=== PATIENT | female | born 1955 | race Caucasian/White ===

== ENCOUNTER → 2021-12-22 10:21 | Outpatient (CLI) | payer MEDICARE, SELFPAY | PROVIDERS: PCP Nurse Practitioner Family; Visit Provider Ophthalmology | DX: Z01.812 Encounter for preprocedural laboratory examination (principal); Z11.52 Encounter for screening for COVID-19 | CPT/HCPCS: C9803; U0003; U0005 ==

== ENCOUNTER 2021-12-25 07:09 | Day surgery (SDC) | payer MEDICARE, SELFPAY ==
[2021-12-19 13:59] VITALS: BMI 31.1
[2021-12-25 07:48] VITALS: BP 152/82; PULSE 84; RESP 16; TEMP 36.7; O2SAT 96
[2021-12-25 09:00] VITALS: RESP 18
[2021-12-25 09:30] VITALS: BP 152/72; PULSE 77; RESP 18; TEMP 36.3; O2SAT 95
[2022-05-30 10:59] LABS: POC Glucose,Bedside 118 (70-110)
== END 2021-12-25 09:30 | disposition home or self-care (01) ==
LOC: OR 07:11
PROVIDERS: PCP Nurse Practitioner Family; Visit Provider Ophthalmology
DX: H25.813 Combined forms of age-related cataract, bilateral (principal); H02.831 Dermatochalasis of right upper eyelid; H02.834 Dermatochalasis of left upper eyelid; F41.9 Anxiety disorder, unspecified; F32.A Depression, unspecified; E11.9 Type 2 diabetes mellitus without complications; I10 Essential (primary) hypertension; E78.5 Hyperlipidemia, unspecified; Z79.84 Long term (current) use of oral hypoglycemic drugs; Z79.899 Other long term (current) drug therapy
CPT/HCPCS: 66984; 82962; V2632

== ENCOUNTER → 2022-01-05 11:33 | Outpatient (CLI) | payer MEDICARE, SELFPAY | PROVIDERS: Visit Provider Ophthalmology | DX: Z01.812 Encounter for preprocedural laboratory examination (principal); Z11.52 Encounter for screening for COVID-19 | CPT/HCPCS: C9803; U0003; U0005 ==

== ENCOUNTER 2022-01-08 07:07 | Day surgery (SDC) | payer MEDICARE, SELFPAY ==
[2022-01-08] VITALS (8 sets, daily range): BP systolic 125–152; BP diastolic 63–83; PULSE 66–76; RESP 18; TEMP 36.2–37.1; O2SAT 95–100; BMI 31.2
[2022-01-08 07:55] LABS: POC Glucose,Bedside 116 (70-110)
== END 2022-01-08 09:32 | disposition home or self-care (01) ==
LOC: OR 07:08
PROVIDERS: PCP Nurse Practitioner Family; Visit Provider Ophthalmology
DX: H25.813 Combined forms of age-related cataract, bilateral (principal); H02.831 Dermatochalasis of right upper eyelid; H02.834 Dermatochalasis of left upper eyelid; F41.9 Anxiety disorder, unspecified; F32.A Depression, unspecified; E11.9 Type 2 diabetes mellitus without complications; I10 Essential (primary) hypertension; E78.5 Hyperlipidemia, unspecified; H91.90 Unspecified hearing loss, unspecified ear; Z85.828 Personal history of other malignant neoplasm of skin; Z80.9 Family history of malignant neoplasm, unspecified; Z83.3 Family history of diabetes mellitus; Z82.49 Family history of ischemic heart disease and other diseases of the circulatory system
CPT/HCPCS: 66984; 82962; V2632

== ENCOUNTER 2022-03-23 11:51 | Emergency (ER) | payer MEDICARE, SELFPAY ==
[2022-03-23 12:40] VITALS: BP 136/79; PULSE 89; RESP 17; TEMP 36.9; O2SAT 97; BMI 31.2
--- NOTE | 2022-03-23 13:07 | HMH.EDUTC ---
[facility] [place] Clinical Impression: Exposure to COVID-19 virus, Upper respiratory infection, viral Disposition: Home, Self-Care Condition on Discharge: Good Instructions: COVID-19: Protecting Yourself When You're at High Risk, DI for COVID-19 (Suspected or Confirmed ) Additional Instructions: covid swab was sent to lab, call tomorrow for results. self isolate until test results are known to be negative No sign of a bacterial infection. Likely viral. Viruses can take 7-14 days to run their course. Nasal saline and bulb syringe or nose Erin to remove nasal drainage to help with nasal congestion. Hard to eat, drink, sleep with nasal congestion so important to keep this cleaned out. Monitor temp. Tylenol or Motrin as needed for pain or fever Encourage fluids, water, Gatorade, Powerade, Pedialyte if /toddler/child Warm salt water gargles Warm fluids Sore throat lozenges Sleep elevated Humidifier/vaporizer Follow-up immediately for new or worsening symptoms or no noticeable improvement over the next 48-72 hours. Referrals: Provider,Referral, [Primary Care Provider] - Time of Disposition: 13:19 Medical Decision Making - Ellis Inquiry Pt receiving controlled substance: No Vital Signs: 03/23/22 12:40 Temperature 98.5 F Temperature Source Oral Pulse Rate [Right Brachial] 89 Respiratory Rate 17 Blood Pressure [Right Arm] 136/79 Blood Pressure Mean [Right Arm] 98 Blood Pressure Source [Right Arm] Automatic Cuff Blood Pressure Position [Right Arm] Sitting 02 Sat by Pulse Oximetry 97 Oxygen Delivery Method Room Air Orders (Tests/Meds): ORDERS Category Date Time Status Covid-19 Nasal PCR ([facility]) Routine Lab 03/23/22 12:40 [place] [facility] [place] - General Chief complaint: Urgent Treatment Center Stated complaint: SORE THROAT, RUNNY NOSE Time Seen by Provider: 03/23/22 13:07 Mode of Arrival: Ambulatory Source of Information: Patient Limitations: No Limitations Description of Symptoms (Recalled from Triage Doc. by RN): PATIENT C/O RUNNY NOSE, COUGH, BODY ACHES X 4 DAYS. RECENTLY EXPOSED TO COVID HEENT Symptoms (Recalled from RN notes): Yes Resp Symptoms (Recalled from RN notes): Yes Skin Symptoms (Recalled from RN notes): No MS Symptoms (Recalled from RN notes): No Functional Status (Recalled from RN notes): WNL - History of Present Illness Provider Complaint: 67 yr old female presents for covid test. pt states has been exposed and having runny nose, and cough - Related Data Home Medications Medication Instructions Recorded Confirmed Atorvastatin Calcium [Lipitor 20mg 20 mg PO HS 12/25/21 01/03/22 Tab] Buspirone HCl [Buspar 10mg 10 mg PO TID 12/25/21 01/03/22 tablet] Fluoxetine HCl [Prozac] 40 mg PO DAILY 12/25/21 01/03/22 Metformin HCl [Glucophage 500mg 500 mg PO BID 12/25/21 01/03/22 Tablet] Ubidecarenone [Coq-10] 100 mg PO DAILY 12/25/21 01/03/22 lisinopriL [Lisinopril] 10 mg PO DAILY 12/25/21 01/03/22 Allergies Allergy/AdvReac Type Severity Reaction Status Date / Time No Known Allergies Allergy Verified 01/03/22 14:16 - Worker's Comp Is this a Worker's Comp case?: No [facility] History - Hepatitis A Screen Attestation statement:: This patient has been screened for Hepatitis A risk factors. I have reviewed the patient's past medical history: Yes Medical History: Reports:: Cancer (skin), Diabetes Mellitus Type 2 Denies:: Diabetes Mellitus Type 1, Internal Pacemaker, MRSA, Seizures Laterality Cases: Right: Breast Biopsy Other Surgeries: No: Pacemaker Amputation: No Fractures: Yes (left wrist fx) - 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 Smoking Status: Never smoker Alcohol Intake: never Occupational Status: retired Housing: house Household Members: spouse Family Hx:: Cancer, Diabetes, Heart Attack ROS Obtained: Yes Systems reviewed as appropriate & no additional complaints - Constitutional Constitutional: Reports system reviewed and no additional complaints, except as docu
[2022-03-23 13:18] VITALS: BP 136/79; PULSE 89; RESP 17; TEMP 36.9; O2SAT 97
== END 2022-03-23 13:29 | disposition home or self-care (01) ==
PROVIDERS: Emergency Provider Nurse Practitioner Family
DX: J06.9 Acute upper respiratory infection, unspecified (principal); Z20.822 Contact with and (suspected) exposure to COVID-19; R07.0 Pain in throat; R09.81 Nasal congestion; R05.9 Cough, unspecified; M79.10 Myalgia, unspecified site; R09.82 Postnasal drip; E11.9 Type 2 diabetes mellitus without complications; Z79.84 Long term (current) use of oral hypoglycemic drugs; Z85.828 Personal history of other malignant neoplasm of skin
CPT/HCPCS: 99212; C9803; G0463; U0003; U0005

== ENCOUNTER 2022-08-13 18:57 | Emergency (ER) | payer MEDICARE, SELFPAY ==
--- NOTE | 2022-08-13 20:13 | EXP.UTC ---
Discharge Plan Disposition Patient Disposition: Home, Self-Care Condition: Good Prescriptions Prescriptions: New azithromycin [azithromycin] 250 mg tablet 250 mg PO DIRECTED Qty: 4 0RF Rx Instructions: one (1) tablet day #2 thru #5 first dose given in [facility] No Action fluoxetine 40 MG capsule 40 mg PO DAILY metformin 500 MG tablet 500 mg PO BID atorvastatin 20 MG tablet 20 mg PO HS buspirone 10 MG tablet 10 mg PO TID lisinopril 10 MG tablet 10 mg PO DAILY coenzyme Q10 100 MG capsule 100 mg PO DAILY Referrals Follow up/Referrals: Latisha Epps [Primary Care Provider] - See instructions Activity Restrictions/Add. Instructions Additional Instructions/Restrictions: Start antibiotics today be sure to take it as ordered with the full length of time although you should start feeling better in 24-48 hours. Change toothbrush and toothpaste 24-48 hours after starting antibiotics Tylenol or Motrin as needed for fever or pain Encourage fluids, water, Gatorade, Powerade, try cold fluids, popsicles, ice cream will make it feel better You are contagious for 24 hours. Avoid kissing anyone, no eating or drinking after anyone. You are contagious. Follow-up the ER for new or worsening symptoms or no noticeable improvement over the next 24-48 hours. Follow-up with PCP this week. Discharge ED Provider: Oumar ([facility]ace [facility] [place] HPI General Stated complaint: bump on back Mode of Arrival: Ambulatory Source of Information: Patient Limitations: No Limitations Time Seen by Provider: 08/13/22 20:13 HEENT Symptoms (Recalled from RN notes): Yes Resp Symptoms (Recalled from RN notes): No Skin Symptoms (Recalled from RN notes): No GI/ Symptoms (Recalled from RN notes): No MS Symptoms (Recalled from RN notes): No History of Present Illness Provider Complaint: 67 yr old female presents for sore throat,body aches,chills, and fever. son has strep Related Data Home Medications Medication Instructions Recorded Confirmed atorvastatin 20 mg tablet 20 mg PO HS Cholesterol 12/25/21 01/03/22 buspirone 10 mg tablet 10 mg PO TID . 12/25/21 01/03/22 coenzyme Q10 100 mg capsule 100 mg PO DAILY Cholesterol 12/25/21 01/03/22 fluoxetine 40 mg capsule 40 mg PO DAILY mood 12/25/21 01/03/22 lisinopril 10 mg tablet 10 mg PO DAILY bp 12/25/21 01/03/22 metformin 500 mg tablet 500 mg PO BID Diabetes 12/25/21 01/03/22 Previous Rx's Medication Instructions Recorded azithromycin 250 mg tablet 250 mg PO DIRECTED #4 tabs 08/13/22 Allergies Allergy/AdvReac Type Severity Reaction Status Date / Time No Known Allergies Allergy Verified 01/03/22 14:16 [facility] Disclaimer: The information contained in this section may have been updated after the patient was seen, as this information can be updated by other users. 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 smoker second hand exposure: No alcohol intake: never current occupational status: retired Travel in the last 8 weeks: None household members: spouse housing: house caffeine: Yes ROS Obtained: Yes All systems reviewed & no additional complaints except as documented Constitutional Constitutional: Reports system reviewed and no additional complaints, except as documented, Reports as per HPI, Reports body ache and Reports chills Eyes Eyes: Reports system reviewed and no additional complaints, except as documented and Reports as per HPI ENT Ears, Nose, Mouth, and Throat: Reports system reviewed and no additional complaints, except as documented, Reports as per HPI, Reports nasal congestion and Reports sore throat Cardiovascular Cardiovascular: Reports system reviewed and no additional complaints, except as documented Respiratory Respiratory: Reports system reviewed and no additional complaints, except as documented Gastrointestinal Gastrointestingal: Reports system re
--- NOTE | 2022-08-13 20:28 | EXP.UTC ---
Discharge Plan Disposition Patient Disposition: Home, Self-Care Condition: Good Prescriptions Prescriptions: New minocycline 100 mg tablet 100 mg PO BID 10 Days Qty: 20 0RF No Action fluoxetine 40 MG capsule 40 mg PO DAILY metformin 500 MG tablet 500 mg PO BID atorvastatin 20 MG tablet 20 mg PO HS buspirone 10 MG tablet 10 mg PO TID lisinopril 10 MG tablet 10 mg PO DAILY coenzyme Q10 100 MG capsule 100 mg PO DAILY Referrals Follow up/Referrals: Latisha Epps [Primary Care Provider] - See instructions Activity Restrictions/Add. Instructions Additional Instructions/Restrictions: Start antibiotics today be sure to take it as ordered with the full length of time although you should start feeling better in 24-48 hours. Follow-up the ER for new or worsening symptoms or no noticeable improvement over the next 24-48 hours. Follow-up with PCP this week. Clinical Impressions Clinical Impression: Abscess Instructions Patient Instructions: Boil Discharge ED Provider: Oumar ([facility])Kandace [facility] [place] HPI General Stated complaint: bump on back Mode of Arrival: Ambulatory Source of Information: Patient Limitations: No Limitations Time Seen by Provider: 08/13/22 20:13 HEENT Symptoms (Recalled from RN notes): No Resp Symptoms (Recalled from RN notes): No Skin Symptoms (Recalled from RN notes): Yes GI/ Symptoms (Recalled from RN notes): No MS Symptoms (Recalled from RN notes): No Card Symptoms (Recalled from RN notes): No Other (Recalled from RN notes): No History of Present Illness Provider Complaint: 67 yr old female presents for a inflamed cyst to back. pt states it has been there for years and it started having some drainage and her tried to squeeze something out of it but was unable to Related Data Home Medications Medication Instructions Recorded Confirmed atorvastatin 20 mg tablet 20 mg PO HS Cholesterol 12/25/21 01/03/22 buspirone 10 mg tablet 10 mg PO TID . 12/25/21 01/03/22 coenzyme Q10 100 mg capsule 100 mg PO DAILY Cholesterol 12/25/21 01/03/22 fluoxetine 40 mg capsule 40 mg PO DAILY mood 12/25/21 01/03/22 lisinopril 10 mg tablet 10 mg PO DAILY bp 12/25/21 01/03/22 metformin 500 mg tablet 500 mg PO BID Diabetes 12/25/21 01/03/22 Previous Rx's Medication Instructions Recorded minocycline 100 mg tablet 100 mg PO BID 10 days #20 tabs 08/13/22 Allergies Allergy/AdvReac Type Severity Reaction Status Date / Time No Known Allergies Allergy Verified 01/03/22 14:16 [facility] Disclaimer: The information contained in this section may have been updated after the patient was seen, as this information can be updated by other users. 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) Smoking Status: Never smoker second hand exposure: No alcohol intake: never current occupational status: retired Travel in the last 8 weeks: None household members: spouse housing: house caffeine: Yes ROS Obtained: Yes All systems reviewed & no additional complaints except as documented Constitutional Constitutional: Reports system reviewed and no additional complaints, except as documented and Reports as per HPI Eyes Eyes: Reports system reviewed and no additional complaints, except as documented ENT Ears, Nose, Mouth, and Throat: Reports system reviewed and no additional complaints, except as documented and Reports as per HPI Cardiovascular Cardiovascular: Reports system reviewed and no additional complaints, except as documented Respiratory Respiratory: Reports system reviewed and no additional complaints, except as documented Gastrointestinal Gastrointestingal: Reports system reviewed and no additional complaints, except as documented Musculoskeletal Musculoskeletal: Reports system reviewed and no additional complaints, except as documented and Reports as per HPI Integumentary/Breasts Skin/Breast: Reports system revie
[2022-08-13 20:36] VITALS: BP 157/70; PULSE 118; RESP 20; TEMP 37; O2SAT 95; BMI 30.9
[2022-08-13 20:43] VITALS: BP 157/70; PULSE 118; RESP 20; TEMP 37
== END 2022-08-13 20:45 | disposition home or self-care (01) ==
PROVIDERS: Emergency Provider Nurse Practitioner Family; PCP Nurse Practitioner Family
DX: L02.212 Cutaneous abscess of back [any part, except buttock and flank] (principal)
CPT/HCPCS: 99212; G0463

== ENCOUNTER 2023-03-04 17:43 | Emergency (ER) | payer MEDICARE, SELFPAY ==
[2023-03-04 17:45] VITALS: BP 150/77; PULSE 100; RESP 18; TEMP 37.1; O2SAT 95; BMI 30.6
--- NOTE | 2023-03-04 18:04 | HMH.EDGENADL ---
Discharge Plan Disposition Patient Disposition: Home, Self-Care Condition: Fair Prescriptions Prescriptions: New ciprofloxacin HCl [Cipro] 500 mg tablet 500 mg PO BID Qty: 20 0RF metronidazole 500 mg tablet 500 mg PO BID 10 Days Qty: 20 0RF No Action fluoxetine 40 MG capsule 40 mg PO DAILY metformin 500 MG tablet 500 mg PO BID atorvastatin 20 MG tablet 20 mg PO HS buspirone 10 MG tablet 10 mg PO TID lisinopril 10 MG tablet 10 mg PO DAILY coenzyme Q10 100 MG capsule 100 mg PO DAILY minocycline 100 mg tablet 100 mg PO BID 10 Days Qty: 20 0RF Referrals Follow up/Referrals: Latisha Epps [Primary Care Provider] - See instructions Clinical Impressions Clinical Impression: Diverticulitis, Mass of right kidney, Lung mass Instructions Patient Instructions: DI for Diverticulitis Discharge ED Provider: Herbie Bell [facility] HPI General Chief complaint: Abdominal Pain Stated complaint: ABD pain Time Seen by Provider: 03/04/23 17:45 History of Present Illness HPI narrative: This is a 68-year-old female who presents emergency room with 3 days of lower abdominal pain accompanied by nausea. Patient describes the pain as crampy intermittent nonradiating. Nonprovoked. Was accompanied by nausea and lightheadedness no vomiting or diarrhea last bowel movement was earlier today. Patient denies any fevers chills or dysuria. Related Data Home Medications Medication Instructions Recorded Confirmed atorvastatin 20 mg tablet 20 mg PO HS Cholesterol 12/25/21 01/03/22 buspirone 10 mg tablet 10 mg PO TID . 12/25/21 01/03/22 coenzyme Q10 100 mg capsule 100 mg PO DAILY Cholesterol 12/25/21 01/03/22 fluoxetine 40 mg capsule 40 mg PO DAILY mood 12/25/21 01/03/22 lisinopril 10 mg tablet 10 mg PO DAILY bp 12/25/21 01/03/22 metformin 500 mg tablet 500 mg PO BID Diabetes 12/25/21 01/03/22 Previous Rx's Medication Instructions Recorded minocycline 100 mg tablet 100 mg PO BID 10 days #20 tabs 08/13/22 ciprofloxacin HCl 500 mg tablet 500 mg PO BID #20 tabs 03/04/23 (Cipro) metronidazole 500 mg tablet 500 mg PO BID 10 days #20 tabs 03/04/23 Allergies Allergy/AdvReac Type Severity Reaction Status Date / Time No Known Allergies Allergy Verified 08/13/22 20:37 [facility] Disclaimer: The information contained in this section may have been updated after the patient was seen, as this information can be updated by other users. 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 smoker second hand exposure: No alcohol intake: never current occupational status: retired Travel in the last 8 weeks: None household members: spouse housing: house caffeine: Yes ROS Obtained: Yes All systems reviewed & no additional complaints except as documented Skin no rash or lesions HEENT no runny nose sore throat Pulmonary no cough or shortness of breath Cardiovascular no chest pain pressure heaviness GI see HPI no dysuria pyuria hematuria Musculoskeletal no neck or back pain Endocrine no polydipsia polyuria or polyphasia Psych no SI or HI The rest of the systems were reviewed and found to be negative Physical Exam Narrative Physical exam: Skin: Warm and dry HEENT: Normocephalic atraumatic extract muscles are intact pupils are equal and reactive to light Neck: Supple nontender Lungs: Clear to auscultation Heart: Regular rate and rhythm Abdomen: NABS soft with right lower quadrant tenderness no guarding or rebound no CVA tenderness Extremities: No clubbing cyanosis or edema Neurologic: No unilateral weakness or numbness Lymphatic: No cervical or inguinal adenopathy Musculoskeletal: No tenderness of the dorsal or lumbar spine Psych: No SI or HI General General appearance: alert Respiratory Respiratory exam: Present normal lung sounds bilaterally Cardiovascular Cardiovascular exam: Present regular
[2023-03-04 18:14] LABS: Basophils % 0.2 % (0.1-2.0); Eosinophils # 0.1 K/mm3 (0.0-0.4); Eosinophils % 1.3 % (0.1-12.0); Hematocrit 39.2 % (37.0-47.0); Hemoglobin 12.4 g/dL (12.2-16.2); Lymphocytes # 1.5 K/mm3 (0.7-4.5); Lymphocytes % 16.6 % (10-50); Mean Corpuscular HGB Conc 31.6 g/dL (31.8-35.4); Mean Corpuscular Hemoglobin 27.2 pg (27.0-31.2); Mean Corpuscular Volume 86.3 fl (81-99); Mean Platelet Volume 7.2 fl (7.4-10.4); Monocytes # 0.9 K/mm3 (0.1-1.0); Monocytes % 9.5 % (1.7-9.3); Neutrophils # 6.6 K/mm3 (1.8-7.8); Neutrophils % 72.4 % (37.0-80.0); Platelet Count 472 K/mm3 (142-424); Red Blood Count 4.54 M/mm3 (4.20-5.40); Red Cell Distribution Width 13.9 % (11.5-17.5); White Blood Count 9.1 K/mm3 (4.8-10.8)
[2023-03-04 18:17] LABS: Chloride 103 mmol/L (98-107); Potassium 3.8 mmoL/L (3.5-5.1); Sodium 139 mmol/L (136-145)
[2023-03-04 18:19] LABS: Blood Urea Nitrogen 7 mg/dl (7-17); Creatinine Clearance Estimated 71 mL/min (50-200); Estimated Glomerular Filt Rate 83 ml/min (>60); GFR (African American) 101 ML/MIN (>60)
[2023-03-04 18:20] LABS: Alanine Aminotransferase 22 U/L (12-78); Albumin/Globulin Ratio 1.3 (1.1-1.8); Alkaline Phosphatase 84 U/L (38-126); Anion Gap 11.8 mEq/L (5-15); Aspartate Amino Transferase 29 U/L (14-36); Bilirubin,Total 0.4 mg/dl (0.2-1.3); Calcium 9.5 mg/dl (8.4-10.2); Carbon Dioxide 28 mmol/L (22.0-30.0); Globulin 3.1 g/dL (1.3-3.2); Glucose 126 mg/dl (74-100); Lipase 90 U/L (23-300); Total Protein,Serum 7.1 g/dl (6.3-8.2)
[2023-03-04 18:30] VITALS: BP 123/65; PULSE 78; O2SAT 93
--- NOTE | 2023-03-04 18:31 | CT_ITS ---
PROCEDURE INFORMATION: Exam: CT Abdomen And Pelvis With Contrast Exam date and time: 03/04/2023 6:46 PM Age: 68 years old Clinical indication: Abdominal pain; Localized; Right lower quadrant (rlq); Additional info: Rlq pain TECHNIQUE: Imaging protocol: Computed tomography of the abdomen and pelvis with contrast. Radiation optimization: All CT scans at this facility use at least one of these dose optimization techniques: automated exposure control; mA and/or kV adjustment per patient size (includes targeted exams where dose is matched to clinical indication); or iterative reconstruction. Contrast material: ISOVUE; Contrast volume: 75 ml; Contrast route: IV; REPORTING DATA: Count of CT and Cardiac NM exams in prior 12 months: This patient has received 0 known CTs and 0 known cardiac nuclear medicine studies in the 12 months prior to the current study. COMPARISON: No relevant prior studies available. FINDINGS: Lungs: There is a lobular heterogeneous mass in the inferomedial right lower lobe measuring approximately 2.6 by 2.5 by 3.6 cm. It appears heterogeneously isodense and also contains small rounded focus of low attenuation measuring approximately 9 mm anteriorly which suggests cystic degeneration. This abuts the inferior medial pleura. Findings are worrisome for malignancy and recommend additional evaluation. Pleural spaces: There are no pleural effusions. Heart: The visualized portions of the heart are unremarkable. There is no evidence of pericardial fluid collections. Liver: There is diffuse decrease in hepatic/liver parenchymal density consistent with fatty infiltration. There is a tiny nonspecific subcentimeter focal liver hypodensity that cannot be further characterized on the current examination. Gallbladder and bile ducts: A few calcified gallstones are present. Pancreas: There is diffuse atrophy of the pancreatic parenchyma. Spleen: The spleen is normal. Adrenal glands: There is a 16 x 12 mm nodule in the left adrenal gland. The density of this lesion does not allow definitive diagnosis of a benign adrenal adenoma on this enhanced examination. Internal Hounsfield units measure 50. The right adrenal gland is normal. Kidneys and ureters: There is a complex right renal cystic mass measuring 3.9 x 4.3 by 4.7 cm. The appearance is worrisome for renal cell carcinoma. Recommend additional evaluation. There are several additional bilateral small renal hypodensities, some of which are too small to accurately characterize. Statistically, these may be cysts. There is a mildly complex cystic process in the superior left kidney measuring approximately 14 mm. This shows a peripheral focus of calcification and may reflect a Bosniak type 2 complex cyst. This could be further evaluated at the time of right renal mass workup. Stomach and bowel: Lack of gastrointestinal contrast limits evaluation of bowel. There is a segment of colonic wall thickening, pericolonic fat stranding and diverticula involving the mid sigmoid colon consistent with acute diverticulitis. No focal fluid collections to indicate abscess. Lack of gastrointestinal contrast limits evaluation of bowel. Unopacified loops of small bowel are within range of normal. The stomach and duodenum appear normal. Appendix: No evidence of appendicitis. A normal appendix is identified. Intraperitoneal space: There is a small amount of free fluid present. No free air. Vasculature: The aorta and iliac arteries demonstrate mild atherosclerotic calcification. There are a few benign phleboliths in the pelvis. Lymph nodes: . No enlarged lymph nodes. Urinary bladder: The bladder is decompressed. Reproductive: The uterus appears small consistent with atrophy or postsurgical change.No adne
[2023-03-04 19:00] VITALS: BP 138/64; PULSE 85; O2SAT 95
[2023-03-04 19:14] LABS: Microscopic, Urine URINE MICROSCOPIC (MICROSCOPIC)
[2023-03-04 19:18] LABS: Appearance,Urine CLEAR (Clear); Bilirubin,Urine Negative (Negative); Blood, Urine 2+ (Negative); Color,Urine YELLOW (Yellow); Glucose,Urine (UA) Negative (Negative); Ketones,Urine Negative (Negative); Leukocyte Esterase,Urine 1+ (Negative); Nitrate,Urine Negative (Negative); PH,Urine 6.5 (5.0-8.5); Protein,Urine Negative (Negative); Specific Gravity, Urine 1.015 (1.005-1.030)
[2023-03-04 19:42] LABS: Bacteria,Urine 1+ /lpf
--- NOTE | 2023-03-04 19:43 | PC.NURSE ---
Pt ambulatory to bathroom
[2023-03-04 20:15] VITALS: BP 138/64; PULSE 86; RESP 18; TEMP 37.1
== END 2023-03-04 20:40 | disposition home or self-care (01) ==
PROVIDERS: Emergency Provider Emergency Medicine; PCP Nurse Practitioner Family
DX: K57.30 Diverticulosis of large intestine without perforation or abscess without bleeding (principal); R10.30 Lower abdominal pain, unspecified; N28.89 Other specified disorders of kidney and ureter
CPT/HCPCS: 74177; 80053; 81001; 83690; 85025; 87086; 87088; 87186; 96361; 96365; 96375; 99285; J1956; J2405; Q9967

== ENCOUNTER 2023-10-23 08:52 | Emergency (ER) | payer MEDICARE, SELFPAY ==
[2023-10-23] VITALS (9 sets, daily range): BP systolic 124–150; BP diastolic 63–89; PULSE 74–102; RESP 16–18; TEMP 36.6; O2SAT 94–98; BMI 30.7
--- NOTE | 2023-10-23 09:14 | CT_ITS ---
FINAL REPORT TECHNIQUE: Axial images through the abdomen and pelvis were performed without contrast. This study was performed with techniques to keep radiation doses as low as reasonably achievable, (ALARA). Individualized dose reduction techniques using automated exposure control or adjustment of mA and/or kV according to the patient's size were employed. CLINICAL HISTORY: L flank pain COMPARISON: 03/04/2023 FINDINGS: Abdomen: There is a moderate right pleural effusion. Postoperative changes are seen in the right infrahilar region. Previously noted right lower lobe lung mass is not seen on today's exam. There are gallstones in the gallbladder. The liver parenchyma is homogeneous. The spleen, pancreas, and adrenals are unremarkable. There is a nonobstructing stone in the superior pole of the left kidney measuring 7 mm. There are postoperative changes along the posterior margin of the right kidney. There is stranding in the retroperitoneal fat. Previously noted complex mass arising from the posterior margin of the right kidney is no longer seen and was presumably resected. Pelvis: The urinary bladder is decompressed. The uterus is present. The appendix is not visualized. There is scattered diverticula throughout the sigmoid colon. There is no pelvic mass or inflammation. IMPRESSION: Moderate right pleural effusion with interval right lower lobectomy. Postoperative changes in the right kidney. Gallstones in the gallbladder. Nonobstructing left renal stone. Reviewed, Interpreted and Dictated by Jake Snell MD Transcribed by Jackie Greer Authenticated and [facility]
--- NOTE | 2023-10-23 09:16 | HMH.EDGENADL ---
Discharge Plan Disposition Patient Disposition: Home, Self-Care Condition: Good Prescriptions Prescriptions: New ketorolac 10 mg tablet 10 mg PO Q8H PRN (Reason: pain) Qty: 20 0RF ondansetron HCl 4 mg tablet 4 mg PO Q8H PRN (Reason: nausea and vomiting) 4 Days Qty: 12 0RF No Action ciprofloxacin HCl [Cipro] 500 mg tablet 500 mg PO BID Qty: 20 0RF metronidazole 500 mg tablet 500 mg PO BID 10 Days Qty: 20 0RF fluoxetine 40 MG capsule 40 mg PO DAILY metformin 500 MG tablet 500 mg PO BID atorvastatin 20 MG tablet 20 mg PO HS buspirone 10 MG tablet 10 mg PO TID lisinopril 10 MG tablet 10 mg PO DAILY coenzyme Q10 100 MG capsule 100 mg PO DAILY minocycline 100 mg tablet 100 mg PO BID 10 Days Qty: 20 0RF Referrals Follow up/Referrals: Latisha Epps [Primary Care Provider] - See instructions Terry Higuera MD [Staff Physician] - See instructions Activity Restrictions/Add. Instructions Additional Instructions/Restrictions: You were evaluated in the emergency department today. At this time, based on your symptoms, labs, and CT scan, feel you most likely passed a kidney stone. It is very important that you follow-up closely with both your primary care provider as well as urology to ensure that your hematuria resolves and that there is not some other underlying issue. [employer] prescriptions and take as needed. Return to the emergency department for new or worsening symptoms, such as fever greater than 100.4 ?F, significant worsening pain, or intractable nausea and vomiting. Clinical Impressions Clinical Impression: Acute left flank pain, Hematuria Instructions Patient Instructions: DI for Kidney Stones, DI for Hematuria Discharge ED Provider: Tracy Luque General Adult HPI General Chief complaint: Back Pain/Injury Stated complaint: lower back pain Time Seen by Provider: 10/23/23 09:03 Mode of Arrival: Ambulatory Source of Information: Patient Limitations: No Limitations Description of Symptoms (Recalled from ER Triage Doc. by RN): pt c/o R lower flank/back pain. pt denies injury but states she has been more active as of recent. pt states the pain is 5/10 and aches in nature. pt states she has a hx of R kidney and lung cancer that was surgically removed late in 2022. pt is not on chemo. pt also has a hx of DM, HLD, and HTN. History of Present Illness HPI narrative: This patient is a 68-year-old female with history of right renal mass status post resection, right lung mass status post resection, hypertension, hyperlipidemia, diabetes, and diverticulitis presenting to the emergency department for evaluation with concern for left flank pain that woke her up from sleep around 530 this morning. It is constant, and nothing makes it better or worse. She denies any known injuries. It is not positional and does not change with movement. She does note that she feels slightly nauseated. No fevers, chills, changes in bowel movements, changes in urine output, or other concerns. She tried heating pad at home without good improvement. Related Data Home Medications Medication Instructions Recorded Confirmed atorvastatin 20 mg tablet 20 mg PO HS Cholesterol 12/25/21 01/03/22 buspirone 10 mg tablet 10 mg PO TID . 12/25/21 01/03/22 coenzyme Q10 100 mg capsule 100 mg PO DAILY Cholesterol 12/25/21 01/03/22 fluoxetine 40 mg capsule 40 mg PO DAILY mood 12/25/21 01/03/22 lisinopril 10 mg tablet 10 mg PO DAILY bp 12/25/21 01/03/22 metformin 500 mg tablet 500 mg PO BID Diabetes 12/25/21 01/03/22 Previous Rx's Medication Instructions Recorded minocycline 100 mg tablet 100 mg PO BID 10 days #20 tabs 08/13/22 ciprofloxacin HCl 500 mg tablet 500 mg PO BID #20 tabs 03/04/23 (Cipro) metronidazole 500 mg tablet 500 mg PO BID 10 days #20 tabs 03/04/23 ketorolac 10 mg tablet 10 mg PO Q8H PRN pain #20 tabs 10/23/23 ondansetron HCl 4 mg tablet 4 mg PO Q8H PRN nausea and 10/23/23 vomiting 4 days #12 tabs Allergies Allergy/AdvReac Type Severity Reaction Status Date / Time No Known Allergies Allergy Verified 08/13/22 20:37 [facility] Disclaimer: The information contained in this section may have been updated after the patient was seen, as this information can be updated by other users. 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 Smoking Status: Never smoker second hand exposure: No alcohol intake: never current occupational status: retired Travel in the last 8 weeks: None household members: spouse housing: house caffeine: Yes ROS Obtained: Yes All systems reviewed & no additional complaints except as documented Physical Exam General General appearance: alert and in no apparent distress Head Head exam: atraumatic and normocephalic Eye Eye exam: Present normal appearance, PERRL and EOMI ENT ENT exam: Present normal exam, normal oropharynx, mucous membranes moist and normal external ear exam Neck Neck exam: Present normal inspection, full ROM and trachea midline; Absent tenderness Chest Chest inspection: Present normal inspection and symmetric chest wall rise; Absent tenderness Respiratory Respiratory exam: Present normal lung sounds bilaterally; Absent respiratory distress, wheezes, stridor or accessory muscle use Cardiovascular Cardiovascular exam: Present regular rate and normal rhythm Abdominal Exam Abdominal exam: Present soft; Absent distention, tenderness or guarding Extremities Exam Extremities exam: Present normal inspection, full ROM and normal capillary refill; Absent tenderness or edema Back Exam Back exam: Present full ROM and CVA tenderness (L); Absent tenderness Neurological Exam Neurological exam: Present alert, oriented X3, CN II-XII intact and normal gait; Absent motor sensory deficit Psychiatric Psychiatric exam: Present normal affect and normal mood Skin Skin exam: Present warm and dry Medical Decision Making Medical Records Medical records reviewed: Yes I reviewed the patient's medical records. [place] Inquiry Pt receiving controlled substance: No Vital Signs: 10/23/23 09:08 10/23/23 08:56 10/23/23 09:00 Temperature 97.8 F Temperature Source Oral Pulse Rate 102 H 87 Pulse Rate [Left] 91 H Respiratory Rate 16 Blood Pressure 146/89 H 150/85 H Blood Pressure [Right Radial Artery] 146/89 H Blood Pressure Mean [Right Radial Artery] 108 Blood Pressure Source Blood Pressure Source [Right Radial Artery] Automatic Cuff Blood Pressure Position [Right Radial Artery] Sitting 02 Sat by Pulse Oximetry 97 95 97 Oxygen Delivery Method Room Air Room Air Room Air 10/23/23 09:34 10/23/23 10:00 10/23/23 10:54 Temperature Temperature Source Pulse Rate 77 77 74 Pulse Rate [Left] Respiratory Rate Blood Pressure 138/71 124/67 127/71 Blood Pressure [Right Radial Artery] Blood Pressure Mean [Right Radial Artery] Blood Pressure Source Blood Pressure Source [Right Radial Artery] Blood Pressure Position [Right Radial Artery] 02 Sat by Pulse Oximetry 97 97 94 L Oxygen Delivery Method Room Air Room Air 10/23/23 11:00 10/23/23 11:30 10/23/23 11:56 Temperature 97.8 F Temperature Source Oral Pulse Rate 74 76 77 Pulse Rate [Left] Respiratory Rate 18 Blood Pressure 130/63 138/75 138/75 Blood Pressure [Right Radial Artery] Blood Pressure Mean [Right Radial Artery] Blood Pressure Source Automatic Cuff Blood Pressure Source [Right Radial Artery] Blood Pressure Position [Right Radial Artery] 02 Sat by Pulse Oximetry 94 L 95 Oxygen Delivery Method Room Air Room Air Room Air Lab Data Lab results reviewed: Yes I reviewed the patient's lab results. Lab Results 10/23/23 09:21: WBC 5.1, RBC 4.43, Hgb 12.6, Hct 38.9, MCV 87.8, MCH 28.5, MCHC 32.5, RDW 14.7, Plt Count 492 H, MPV 7.5, Neut % (Auto) 74.5, Lymph % (Auto) 16.3, [place] % (Auto) 8.1, Eos % (Auto) 1.1, Baso % (Auto) 0.1, Neut # (Auto) 3.8, Lymph # (Auto) 0.8, [place] # (Auto) 0.4, Eos # (Auto) 0.1, Baso # (Auto) 0.0, Sodium 140, Potassium 3.8, Chloride 107, Carbon Dioxide 27, Anion Gap 9.8, BUN 10, Creatinine 0.80, Estimated Creat Clear 71, Estimated GFR 71, Est GFR ( Amer) 86, Glucose 130 H, Calcium 9.8, Total Bilirubin 0.6, AST 23, ALT 19, Alkaline Phosphatase 93, Total Protein 7.1, Albumin 4.1, Globulin 3.0, Albumin/Globulin Ratio 1.4 10/23/23 10:15: Urine Color Yellow, Urine Appearance Clear, Urine pH 6.0, Ur Specific [place] 1.025, Urine Protein 1+, Urine Glucose (UA) Negative, Urine Ketones Negative, Urine Blood 3+, Urine Nitrate Negative, Urine Bilirubin Negative, Urine Urobilinogen 0.2, Ur Leukocyte Esterase Negative, Urine RBC 5-10, Urine WBC None, Ur Squamous Epith Cells 3-5, Urine Bacteria 1+ 10/23/23 09:21 10/23/23 09:21 Orders (Tests/Meds): ED MEDICATIONS Discontinued Medications Generic Name Dose Route Start Last Admin Trade Name Keiry PRN Reason Stop Dose Admin Acetaminophen 1,000 mg 10/23/23 09:14 10/23/23 09:22 Acetaminophen 1,000mg/100ml Vial IV 10/23/23 09:15 1,000 mg ONCE ONE Administration Lactated Ringer's 1,000 mls @ 999 mls/hr 10/23/23 09:14 10/23/23 09:23 Lactated Ringer's 1000 Ml Bag IV 10/23/23 10:14 999 mls/hr .Q1H1M ONE Administration Ketorolac Tromethamine 15 mg 10/23/23 09:14 10/23/23 09:23 Ketorolac 30mg/Ml Vial IV 10/23/23 09:15 15 mg ONCE ONE Administration Ondansetron HCl 4 mg 10/23/23 09:14 10/23/23 09:23 Ondansetron 4mg/2ml Vial IV 10/23/23 09:15 4 mg ONCE ONE Administration ORDERS Category Date Time Status CT abdomen pelvis wo con Stat Cat Scan 10/23/23 09:14 Completed Complete Blood Count Auto Diff Stat Lab 10/23/23 09:21 Completed Comprehensive Metabolic Panel Stat Lab 10/23/23 09:21 Completed Urinalysis and Microscopic Stat Lab 10/23/23 10:15 Completed Medical Decision Narrative: In summary, this patient is a 68-year-old female presenting to the Emergency Department for evaluation of left flank pain. Differential diagnoses considered include but are not limited to pyelonephritis, ureterolithiasis, colitis, diverticulitis, renal mass. Ruling out the most morbid conditions drove assessment. It should be noted patient's history includes hypertension, hyperlipidemia, and diabetes which may or may not be at goal therapy. This complicates all aspects of care by increasing patient's risk for morbidity. On exam, the patient is nontoxic-appearing with reassuring vital signs on cardiac telemetry. She has left CVA tenderness, but otherwise exam is reassuring. Workup included CBC, CMP, urinalysis, and CT abdomen and pelvis without IV contrast. She was given a bolus of IV fluids as well as IV Toradol, acetaminophen, and Zofran for symptomatic improvement. I independently interpreted CT scan prior to the radiologist read and noted no obvious acute obstructing stones, however patient does have a left renal stone that is nonobstructing. Please see their read for final interpretation. Labs were obtained that demonstrated hematuria without other acute concerns.. On reassessment, patient had good improvement after administration of interventions above. She had no recurrence of pain. At this time based on her hematuria and otherwise reassuring workup and exam, I feel it is possible that she likely passed a ureteral stone. Given her hematuria, advised that she follow-up very closely with urology as well as her primary care provider, but since her symptoms have resolved and workup was otherwise reassuring, I feel that she is appropriate for discharge home. She was given very strict return precautions. Critical Care Critical Care Time Critical Care Time: No
[2023-10-23] MEDS: ACETAMINOPHEN 1,000MG/100ML VIAL 1000 MG IV (09:22)
[2023-10-23] MEDS: ONDANSETRON 4MG/2ML VIAL 4 MG IV (09:23)
[2023-10-23] MEDS: LACTATED RINGERS 1000ML 1,000 ML 999 ML IV (09:23)
[2023-10-23] MEDS: KETOROLAC 30MG/ML VIAL 15 MG IV (09:23)
[2023-10-23 09:31] LABS: Basophils % 0.1 % (0.1-2.0); Eosinophils # 0.1 K/mm3 (0.0-0.4); Eosinophils % 1.1 % (0.1-12.0); Hematocrit 38.9 % (37.0-47.0); Hemoglobin 12.6 g/dL (12.2-16.2); Lymphocytes # 0.8 K/mm3 (0.7-4.5); Lymphocytes % 16.3 % (10-50); Mean Corpuscular HGB Conc 32.5 g/dL (31.8-35.4); Mean Corpuscular Hemoglobin 28.5 pg (27.0-31.2); Mean Corpuscular Volume 87.8 fl (81-99); Mean Platelet Volume 7.5 fl (7.4-10.4); Monocytes # 0.4 K/mm3 (0.1-1.0); Monocytes % 8.1 % (1.7-9.3); Neutrophils # 3.8 K/mm3 (1.8-7.8); Neutrophils % 74.5 % (37.0-80.0); Platelet Count 492 K/mm3 (142-424); Red Blood Count 4.43 M/mm3 (4.20-5.40); Red Cell Distribution Width 14.7 % (11.5-17.5); White Blood Count 5.1 K/mm3 (4.8-10.8)
[2023-10-23 09:38] LABS: Alanine Aminotransferase 19 U/L (12-78); Albumin Level 4.1 g/dl (3.5-5.0); Albumin/Globulin Ratio 1.4 (1.1-1.8); Alkaline Phosphatase 93 U/L (38-126); Anion Gap 9.8 mEq/L (5-15); Aspartate Amino Transferase 23 U/L (14-36); Bilirubin,Total 0.6 mg/dl (0.2-1.3); Blood Urea Nitrogen 10 mg/dl (7-17); Calcium 9.8 mg/dl (8.4-10.2); Carbon Dioxide 27 mmol/L (22.0-30.0); Chloride 107 mmol/L (98-107); Creatinine Clearance Estimated 71 mL/min (50-200); Estimated Glomerular Filt Rate 71 ml/min (>60); GFR (African American) 86 ML/MIN (>60); Glucose 130 mg/dl (74-100); Potassium 3.8 mmoL/L (3.5-5.1); Sodium 140 mmol/L (136-145); Total Protein,Serum 7.1 g/dl (6.3-8.2)
--- NOTE | 2023-10-23 09:41 | PC.NURSE ---
pt aware of urine sample needed for collection
[2023-10-23 10:19] LABS: Microscopic, Urine URINE MICROSCOPIC (MICROSCOPIC)
[2023-10-23 10:22] LABS: Appearance,Urine CLEAR (Clear); Bilirubin,Urine Negative (Negative); Blood, Urine 3+ (Negative); Color,Urine YELLOW (Yellow); Glucose,Urine (UA) Negative (Negative); Ketones,Urine Negative (Negative); Leukocyte Esterase,Urine Negative (Negative); Nitrate,Urine Negative (Negative); Protein,Urine 1+ (Negative); Specific Gravity, Urine 1.025 (1.005-1.030); Urobilinogen,Urine 0.2 EU/dl (0.2)
[2023-10-23 10:56] LABS: Bacteria,Urine 1+ /lpf
--- NOTE | 2023-10-23 11:09 | PC.NURSE ---
ROUNDED ON PT NO NEEDS, PLACED PT ON BP CUFF AND PULSE OX VISITOR AND CALL LIGHT AT BS
== END 2023-10-23 11:58 | disposition home or self-care (01) ==
PROVIDERS: Emergency Provider Emergency Medicine; PCP Nurse Practitioner Family
DX: R10.9 Unspecified abdominal pain (principal); R31.9 Hematuria, unspecified; M54.50 Low back pain, unspecified; R11.0 Nausea; I10 Essential (primary) hypertension; E78.5 Hyperlipidemia, unspecified; E11.9 Type 2 diabetes mellitus without complications; Z85.528 Personal history of other malignant neoplasm of kidney; Z85.118 Personal history of other malignant neoplasm of bronchus and lung
CPT/HCPCS: 74176; 80053; 81001; 85025; 96361; 96374; 96375; 99285; J0131; J2405

== ENCOUNTER 2025-05-20 13:38 | Outpatient (CLI) | payer MEDICARE, SELFPAY ==
--- OUTSIDE RECORDS SUMMARY | 2025-05-10 10:40 | XMS_ITS | Encounter Summary ---
Author Organization [facility] Address [address] [place] [address] Care Team Providers Care Family Resource Management Professor Name Role Phone Latisha Epps APRN Primary Care Provider [phone] Desire Ojeda MD Unavailable [phone] Jad Smith MD Unavailable [phone] Reason for Referral * Imaging (Routine) - Authorized Specialty Diagnoses / Procedures Referred By Roberto palomares Referred To Contact Diagnoses Vertigo Procedures MR Head wo IV Contrast Latisha Epps APRN [address] [place] [address] Phone: tel: fax: Referral ID Status Reason Start Date Expiration Date V isits Requested Visits Authorized [id number] Authorized 05/10/2025 11/09/2026 1 1 Reason for Visit * Reason Comments Dizziness Dizziness for brittany l years since 2009, has changed over the years beginning to be more frequent and feeling as is being pulled to left side, happens more often from sitting position. Encounter Details Date Type Department Care Team (Late st Contact Info) Description 05/10/2025 10:40 AM EDT Office Visit [facility] [address] [place] [address] Latisha [place]pps [place] [address] Type 2 diabetes mellitus without complication, without long-term current use of insulin (Primary Dx); Essential hypertension; Other fatigue; Vertigo 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 Tobacco Use Types Packs/Day Years Used Date Smoking Tobacco: Never Passive Smoke Exposure: Never Smokeless Tobacco: Never Alcohol Use Standard Drinks/Week Comments Yes 0 (1 standard drink = 0.6 oz pur e alcohol) Every now and then Social Connection and Isolation Panel Answer Date Recorded In a typical week, how many times do you talk on the phone with family, friends, or neighbors? Never 04/23/2024 How often do you get togethe r with friends or relatives? Three times a week 04/23/2024 How often do you attend chur or druze services? More than 4 times per year 04/23/2024 Do you belong to any clubs o r organizations such as jewish groups, unions, fraternal or athletic groups, or school groups? No 04/23/2024 How often do you attend meet ings of the clubs or organizations you belong to? Never 04/23/2024 Are you , , di vorced, , never , or living with a partner? 04/23/2024 AUDIT-C Answer Date Recorded Q1: How often do you have a drink containing alcohol? Never 04/23/2024 Q2: How many drinks containi ng alcohol do you have on a typical day when you are drinking? Patient does not drink Q3: How often do you have si x or more drinks on one occasion? Never 04/23/2024 PHQ-2 Answer Date Recorded Patient Health Questionnaire-2 Score 0 05/10/2025 [facility] - Occupational Stress Questionnaire Answer Date Recorded Do you feel stress - tense, restless, nervous, or anxious, or unable to sleep at night because your mind is troubled all the time - these days? To some extent 04/23/2024 Exercise Vital Sign Answer Date Recorde d On average, how many days pe r week do you engage in moderate to strenuous exercise (like a brisk walk)? 0 days 04/23/2024 On average, how many minutes do you engage in exercise at this level? 0 min 04/23/2024 PHQ-9 Answer Date Recorded Patient Health Questionnaire-9 Score 6 05/10/2025 Humiliation, Afraid, Rape, and Kick questionnair e Answer Date Recorded Within the last year, have y ou been afraid of your partner or ex-partner? No 05/05/2025 Within the last year, have y ou been humiliated or emotionally abused in other ways by your partner or ex-partner? No Within the last year, have y ou been kicked, hit, slapped, or otherwise physically hurt by your partner or ex-partner? No 05/05/2025 Within the last year, have y ou been raped or forced to have any kind of sexual activity by your partner or ex-partner? No 05/05/2025 AUDIT-C Answer Date Recorded Q1: How often do you have a drink containing alc ohol? Never 05/10/2025 Average Number of Drinks Not on file 025 Frequency of Binge Drinking Not on file 05/2025 Hunger Vital Sign Answer Date Recorded Within the past 12 months, y ou worried that your food would run out before you got the money to buy more. Never true 05/05/20 25 Within the past 12 months, t he food you bought just didn't last and you didn't have money to get more. Never true 05/05/2025 PRAPARE - Transportation Answer Date Re corded In the past 12 months, has l ack of transportation kept you from medical appointments or from getting medications? No 11/2024 In the past 12 months, has l ack of transportation kept you from meetings, work, or from getting things needed for daily living? No 05/05/2025 Housing Stability Vital Sign Answer Cristopher e Recorded In the last 12 months, was t here a time when you were not able to pay the mortgage or rent on time? No 05/05/2025 In the past 12 months, how m any times have you moved where you were living? 0 05/05/2025 At any time in the past [address] [facility], were you homeless or living in a jail (including now)? No 05/05/2025 [facility] Utilities Answer Date Recorded In the past 12 months has th e electric, gas, oil, or water company threatened to shut off services in your home? No 05/05/2025 CAGE ASSESSMENT Answer Date Recorded Cage unable to access Not on file 07/03/2023 Cage max number of drinks Not on file 2022 Cage Beverages a week Not on file 07/03/2023 Have you ever felt you should CUT down on your d rinking? 0 07/03/2023 Have you been ANNOYED by people criticizing your drinking? 0 07/03/2023 Have you felt GUILTY about your drinking? 0 07/03/2023 Have you had a drink first t chaparro in the morning ([employer]) to steady your nerves or to get rid of a hangover? 0 07/03/2023 CAGE Questionnaire Score 0 023 PHQ-2A Answer Date Recorded Patient Health Questionnaire-2 Score 0 03/26/2023 Comments No Sex and Gender Information Value Date Recorded Sex Assigned at Female 08/08/2022 2:01 PM EST Legal Sex Female 7:17 PM EDT Gender Identity Female 08/08/2022 2:01 PM EST Sexual Orientation Not on file Travel History Travel Start Travel End [place] 04/26/2025 05/03/2025 documented as of this encounter Last Filed Vital Signs Vital Sign Reading Time Taken Comments Blood Pressure 138/70 05/10/2025 10:46 AM EDT Pulse 84 05/10/2025 10:46 AM EDT Temperature 36.8 C (98.3 F) 05/10/2025 10:46 AM EDT Respiratory Rate 16 05/10/2025 10:46 AM EDT Oxygen Saturation 96% 05/10/2025 10:46 AM EDT Inhaled Oxygen Concentration - - Weight 85.3 kg (188 lb) 05/10/2025 10:46 AM EDT Height 164.3 cm (5' 4.7 ) 05/10/2025 10:46 AM ED T Body Mass Index 31.58 05/10/2025 10:46 AM EDT documented in this encounter Functional Status * Over the past 2 weeks, how often have you been bothered by any of the following problems? Question Answer Date of Assessment Author Little interest or pleasure in doing things Not at all 05/10/2025 10:57 AM EDT Milady Salinas Feeling down, depressed, or hopeless Not at all 05/10/2025 10:57 AM EDT Milady Salinas Patient Health Questionnaire -2 Score 0 05/10/2025 10:57 AM Milady Cotton * Question Answer Date of Assessment Author Trouble falling or staying asleep, or sleeping too much Not at all 05/10/2025 10:57 AM Milady Villa Feeling tired or having little energy Nearly every day 05/10/2025 10:57 AM Milady Cotton Poor appetite or overeating Not at all 05/10/2025 10 :57 AM Milady Cotton Feeling bad about yourself - or that you are a failure or have let yourself or your family down Not at all 05/10/2025 10:57 AM Milady Cotton Trouble concentrating on things, such as reading the newspaper or watching television Nearly every day 05/10/2025 10:57 AM Milady Cotton Moving or speaking so slowly that other people could have noticed? Or the opposite - being so fidgety or restless that you have been moving around a lot more than usual. Not at all 05/10/2025 10:57 AM Milady Cotton Thoughts that you would be better off or hurting yourself in some way Not at all 05/10/2025 10:57 AM Milady Cotton Patient Health Questionnaire-9 Score 6 05/10/2025 10:57 AM Milady Cotton * Calculated C-SSRS Risk Score (Lifetime/Recent) Answer Date of Assessment Author No Risk Indicated 05/10/2025 10:49 AM Milady Guo * How difficult have these problems made it for you to do your work, take care of things at home, or get along with other people? Answer Date of Assessment Author Somewhat difficult 05/10/2025 10:57 AM Milady Crowder * How difficult have these problems made it for you to do your work, take care of things at home, or get along with other people? Answer Date of Assessment Author Somewhat difficult 05/10/2025 10:57 AM Milady Crowder * Question Answer Date of Assessment Author 1. Wish to be (Past 1 Month) No 025 10:49 AM Milady Cotton 2. Non-Specific Active Suici coni Thoughts (Past 1 Month) No 05/10/2025 10:49 AM EDT Chanel Salinas 6. Suicidal Behavior (Lifetime) No 10:49 AM EDT Milady Salinas documented as of this encounter Miscellaneous Notes * Clinician Note - Milady Salinas - 05/10/2025 10:40 AM EDT Fall risk protocol in place, pt in chair with arms * Progress Notes - Latisha Epps APRN - 05/10/2025 10:40 AM EDT Office Progress Note Subjective Irena Chase is a 70 y.o. female who presents for Dizziness (Dizziness for several years [id number], has changed over the years beginning to be more frequent and feeling as is being pulled to left side, happens more often from sitting position.). History of Present Illness The patient presents for severe dizziness and vertigo, which have been longstanding issues but haverecently worsened to the point of causing falls. She is up to date on mammogram,colon and DEXA. She reports experiencing mild dizziness upon standing up from a seated position, similar to symptoms experienced during her last visit when her lisinopril dosage was reduced. The dizziness persists, particularly when she stands up too quickly or walks on uneven terrain such as slopes or downhill paths. An incident on 04/28/2025 involved a sudden bout of diarrhea, during which she hurriedly stood up from the couch and rushed to the bathroom. This rapid movement resulted in severe dizziness, causing her to fall sideways from the toilet seat onto a small plastic rolling cabinet cart and hit her head against the shower door. Although she did not experience any head pain, she reported soreness in her ribs due to the impact of the fall. She also mentioned feeling dizzy during her recent visit to this clinic. Has hx kidney cancer and lung cancer within past 2 years She continues to experience fatigue. Despite receiving B12 injections and taking vitamin D supplements, she has not noticed any improvement in her energy levels. FAMILY HISTORY Her son has a similar issue with blood pressure and is on several medications. The following sections have been reviewed and updated during this encounter: Tobacco Allergies Meds Problems Med Hx Surg Hx Fam Hx Objective Blood pressure 138/70, pulse 84, temperature 36.8 ??C (98.3 ??F), temperature source Oral, resp. rate 16, height 1.643 m (5' 4.7 ), weight 85.3 kg (188 lb), SpO2 96%. Body mass index is 31.58 kg/m??. Physical Exam Assessment/Plan There are no diagnoses linked to this encounter. Assessment & Plan 1. Dizziness: - The patient reports severe dizziness and vertigo, which has worsened to the point of causing falls. - Physical exam findings include dizziness upon standing and while walking on slanted surfaces. Thepatient fell on 04/28/2025, resulting in rib soreness. - A head scan will be conducted to rule out any abnormalities tim with hx kidney cancer and lung cancer in last 2-3 years. Blood work will be performed today to ensure overall health. - Lisinopril will be discontinued for 2 weeks to observe if there is an improvement in her dizziness. The patient is advised to maintain physical activity but to cease if dizziness occurs. 2. Fatigue: - The patient reports persistent fatigue despite previous B12 shots and vitamin D supplementation. - The patient has a history of mild anemia, possibly related to kidney cancer, which could contribute to her fatigue. Additional labs will be ordered today to monitor her condition. - Discontinuing lisinopril may help alleviate her fatigue. Follow-up: A follow-up appointment is scheduled in 2 weeks. Verbal consent was obtained to use ambient listening technology to assist in the documentation of the encounter: yes documented in this encounter Plan of Treatment Upcoming Encounters Date Type Department Care Team (Late st Contact Info) Description 05/24/2025 11:00 AM EDT Office Visit [facility] [address] [address] Latisha Epps APRN [address] [place] [address] 06/29/2025 7:40 AM EDT Appointment [facility] [address] [place] [address] 06/29/2025 10:15 AM EDT Office Visit [facility] [address] [place] [address] Ken Horton MD [address] [place] [address] 07/05/2025 9:45 AM EST Office Visit [facility] [address] [facility], [address]nd [place] [address] Desire Ojeda MD [address] [place] [address] Scheduled Orders Name Type Priority Associated Diagnoses Orde r Schedule MR Head wo IV Contrast Imaging Routine Vertigo Expected: 05/10/2025 (Approximate), Expires: 11/11/2026 documented as of this encounter Procedures Procedure Name Priority Date/Time Associated Diagnosis Comments CBC WITH AUTO DIFFERENTIAL Routine 05/10/2025 11:35 AM EDT Essential hypertension TSH Routine 05/10/2025 11:35 AM EDT Type 2 diabetes mellitus without complication, without long-term current use of insulin HEMOGLOBIN A1C Routine 05/10/2025 11:35 AM EDT Type 2 diabetes mellitus without complication, without long-term current use of insulin LIPID PROFILE, PLASMA Routine 05/10/2025 11:35 AM EDT Essential hypertension COMPREHENSIVE METABOLIC PANEL, PLASMA Routine 05/10/2025 11:35 AM EDT Essential hypertension documented in this encounter Results * (ABNORMAL) Lipid Profile, Plasma (05/10/2025 11:35 AM EDT) Cholesterol, Plasma 155 <200 mg/dL 05/10/2025 7:[address] [facility] Comment: Cholesterol Reference Range (age >17 years): Desirable <200 mg/dL Borderline 200 to 239 mg/dL Undesirable >239 mg/dL HDL 46(L) >=50 mg/dL 05/10/2025 7:[address] [facility] Comment: HDL Cholesterol Reference Ranges (age >17 years): Female, acceptable > or = 50 mg/dL Male, acceptable > or = 40 mg/dL Triglycerides, Plasma 145 <150 mg/dL 05/10/2025 7:[address] [facility] Comment: Triglyceride Reference Range (age >17 years): Desirable: <150 mg/dL Borderline high: 150 to 199 mg/dL High: 200 to 499 mg/dL Very high: >499 mg/dL Increased risk of pancreatitis: >1000 mg/dL Cholesterol/HDL Ratio 3 05/10/2025 7:[address] [facility] LDL, Calculated 84 <100 mg/dL 7:[address] [facility] Comment: LDL Cholesterol Reference Range (age >17 years): Optimal: <100 mg/dL Near or above optimal: 100 - 129 mg/dL Borderline high: 130 - 159 mg/dL High: 160 - 189 mg/dL Very high: >189 mg/dL LDL Cholesterol Reference Range (age <18 years): Desirable: <110 mg/dL Borderline: 110 - 129 mg/dL Undesirable: >130 mg/dL LDL Cholesterol is calculated using the Kyle/NIH equation. Fasting greater than or equal to 12 hours? Yes 05/10/2025 7:[address] [facility] Blood Venous blood specimen / Unknown Venipuncture / Unknown 05/10/2025 11:35 AM EDT 05/10/2025 11:35 AM EDT us Latisha Epps APRN LAB BLOOD ORDERABLES Final Result [facility] [address] [place] [address] * (ABNORMAL) CBC and Differential (05/10/2025 11:35 AM EDT) WBC Count 7.37 3.70 - 10.30 10*3/uL LAB HEMATOLOGY METHOD 05/10/2025 7:[address] [facility] RBC Count 4.41 3.90 - 5.20 10*6/uL LAB HEMATOLOGY METHOD 05/10/2025 7:[address] [facility] HGB 12.2 11.2 - 15.7 g/dL LAB HEMATOLOGY METHOD 05/10/2025 7:[address] [facility] HCT 39.3 34.0 - 45.0 % LAB HEMATOLOGY METHOD 05/10/2025 7:[address] [facility] Platelet Count 477(H) 155 - 369 10*3/uL LAB HEMATOLOGY METHOD 05/10/2025 7:[address] [facility] MCV 89 79 - 98 fL LAB HEMATOLOGY METHOD 05/10/2025 7:[address] [facility] MCH 27.7 26.0 - 32.0 pg LAB HEMATOLOGY METHOD 05/10/2025 7:[address] [facility] MCHC 31.0 30.7 - 35.5 g/dL LAB HEMATOLOGY METHOD 05/10/2025 7:[address] [facility] RDW 14.1 11.5 - 14.5 % LAB HEMATOLOGY METHOD 05/10/2025 7:[address] [facility] MPV 8.8 8.8 - 12.5 fL LAB HEMATOLOGY METHOD 05/10/2025 7:[address] [facility] nRBC 0.0 <=0.0 per 100 WBCs LAB HEMATOLOGY METHOD 05/10/2025 7:[address] [facility] Differential Type Automated LAB HEMATOLOGY METHOD 05/10/2025 7:[address] [facility] Neutrophils % 73 % LAB HEMATOLOGY METHOD 05/10/2025 7:[address] [facility] Lymphocytes % 14 % LAB HEMATOLOGY METHOD 05/10/2025 7:[address] [facility] Monocytes % 9 % LAB HEMATOLOGY METHOD 05/10/2025 7:[address] [facility] Eosinophils % 1 % LAB HEMATOLOGY METHOD 05/10/2025 7:[address] [facility] Basophils % 0 % LAB HEMATOLOGY METHOD 05/10/2025 7:[address] [facility] Immature Granulocytes % 3 % LAB HEMATOLOGY METHOD 05/10/2025 7:[address] [facility] Neutrophils Absolute 5.44 1.60 - 6.10 10*3/uL LAB HEMATOLOGY METHOD 05/10/2025 7:[address] [facility] Lymphocytes Absolute 1.06(L) 1.20 - 3.90 10*3/uL LAB HEMATOLOGY METHOD 05/10/2025 7:[address] [facility] Monocytes Absolute 0.63 0.30 - 0.90 10*3/uL LAB HEMATOLOGY METHOD 05/10/2025 7:[address] [facility] Eosinophils Absolute 0.04 0.00 - 0.50 10*3/uL LAB HEMATOLOGY METHOD 05/10/2025 7:[address] [facility] Basophils Absolute 0.01 0.00 - 0.10 10*3/uL LAB HEMATOLOGY METHOD 05/10/2025 7:[address] [facility] Immature Granulocytes Absolute 0.19(H) 0.00 - 0.06 10*3/uL LAB HEMATOLOGY METHOD 05/10/2025 7:[address] [facility] Blood Venous blood specimen / Unknown Venipuncture / Unknown 05/10/2025 11:35 AM EDT 05/10/2025 11:[address] [facility] - 05/10/2025 7:12 PM EDT Therapeutic decision making should be based on absolute values, rather than percentages. Latisha Epps UNSTACKER LAB BLOOD ORDERABLES Final Result [facility] [address] [place] [address] * (ABNORMAL) Comprehensive Metabolic Panel, Plasma (05/10/2025 11:35 AM EDT) Glucose, Plasma 98 74 - 99 mg/dL 05/10/2025 7:[address] [facility] BUN, Plasma 9 8 - 23 mg/dL 05/10/2025 7:[address] [facility] Creatinine, Plasma 0.75 0.60 - 1.10 mg/dL 05/10/2025 7:[address] [facility] BUN/Creatinine Ratio 12 05/10/2025 7:[address] [facility] Sodium, Plasma 138 136 - 145 mmol/L 05/10/2025 7:[address] [facility] Potassium, Plasma 4.3 3.6 - 4.9 mmol/L 05/10/2025 7:[address] [facility] Chloride, Plasma 103 97 - 107 mmol/L 05/10/2025 7:[address] [facility] CO2, Plasma 23 22 - 29 mmol/L 05/10/2025 7:[address] [facility] Anion Gap 12 6 - 16 mmol/L 05/10/2025 7:[address] [facility] Total Calcium, Plasma 10.3(H) 8.9 - 10.2 mg/dL 05/10/2025 7:[address] [facility] Total Protein 7.3 6.3 - 7.9 g/dL 05/10/2025 7:[address] [facility] Albumin, Plasma 4.2 3.5 - 5.2 g/dL 05/10/2025 7:[address] [facility] AST, Plasma 19 10 - 35 U/L 05/10/2025 7:[address] [facility] ALT, Plasma 13 10 - 35 U/L 05/10/2025 7:[address] [facility] Alkaline Phosphatase, Plasma 84 46 - 142 U/L 05/10/2025 7:[address] [facility] Total Bilirubin, Plasma 0.4 0.2 - 1.1 mg/dL 05/10/2025 7:[address] [facility] eGFRcr 85.8 mL/min/1.7 3m*2 05/10/2025 7:[address] [facility] Comment:Reported eGFRcr in m L/min/1.73m2 is based the CKD-EPI 2020 equation that does not use a race coefficient. Blood Venous blood specimen / Unknown Venipuncture / Unknown 05/10/2025 11:35 AM EDT 05/10/2025 11:35 AM EDT Latisha Epps UNSTACKER LAB BLOOD ORDERABLES Final Result Performing Organization Address City/[facility]/ZIP Co de Phone Number [facility] [address] [place] [address] * (ABNORMAL) Hemoglobin A1c (05/10/2025 11:35 AM EDT) Hemoglobin A1c 6.5(H) <5.7 % 05/10/2025 8:[address] [facility] Blood Venous blood specimen / Unknown Venipuncture / Unknown 05/10/2025 11:35 AM EDT 05/10/2025 11:[address] [facility] - 05/10/2025 8:52 PM EDT HA1C Interpretive Data: Diagnosis of Diabetes: Diabetic > or = 6.5% Pre-diabetic 5.7 to 6.4% Non-diabetic < or = 5.6% Glycemic Targets for Type I and Type II Diabetics: Non- Adults <7.0% Adults <6.0% Children and Adolescents <7.5% Source: [place] [employer]. Standards of medical care in diabetes,2017. Diabetes Care.2017:40 (suppl 1):S1-S135. Latisha Epps UNSTACKER LAB BLOOD ORDERABLES Final Result Performing Organization Address [facility] Co de Phone Number [facility] [address] [place] [address] * Thyroid Stimulating Hormone, Plasma (05/10/2025 11:35 AM EDT) Thyroid Stimulating Hormone, Plasma 0.82 0.40 - 4.20 uIU/mL 05/10/2025 7:[address] [facility] Blood Venous blood specimen / Unknown Venipuncture / Unknown 05/10/2025 11:35 AM EDT 05/10/2025 11:35 AM EDT Latisha Epps UNSTACKER LAB BLOOD ORDERABLES Final Result [facility] [address] [place] [address] documented in this encounter Visit Diagnoses Diagnosis Type 2 diabetes mellitus without complication, without long-term current use of insulin- Primary Essential hypertension Unspecified essential hypertension Other fatigue Vertigo Dizziness and giddiness documented in this encounter Additional Health Concerns Assessment Noted Time PHQ-9 Depression Total Score: 6 05/10/20 25 10:57 AM EDT A fall risk assessment has been complete d for the patient 05/10/2025 10:54 AM EDT A Body Mass Index follow-up plan has been documented for the patient 05/10/2025 11:22 AM EDT documented as of this encounter Care Teams Family Resource Management Professor Relationship Specialty Start Date End Date Latisha Epps APRN [address] [place] [address] PCP - General 01/12/21 Desire Ojeda MD [address] [facility] [address] [place] [address] Surgeon Cardiothoracic Surgery 03/24/23 Jad Smith MD [address] [facility] [address] [place] [address] Referring Physician Hematology and Oncology 03/24/23 documented as of this encounter
--- NOTE | 2025-05-20 13:41 | MR_ITS ---
FINAL REPORT TECHNIQUE: Multiplanar MR without contrast CLINICAL HISTORY: EPISODES OF DIZZINESS, RESULTING IN FALLS COMPARISON: none FINDINGS: Diffusion sequences show no signal abnormality to indicate acute infarct. No mass, hemorrhage or edema is seen. There is moderate generalized atrophy. Ventricles are normal for age. Major vascular flow voids are intact. IMPRESSION: No acute intracranial abnormality or hydrocephalus. Reviewed, Interpreted and Dictated by Jesús Gibbs MD Transcribed by Milady Cheema Authenticated and [facility]
--- OUTSIDE RECORDS SUMMARY | 2025-05-20 13:41 | XMS_ITS | Encounter Summary ---
Author Organization Healthcare Address [address] [place] [address] Care Team Providers Care Baccarat Dealer Name Role Phone Latisha Epps APRN Primary Care Provider [phone] Desire Ojeda MD Unavailable [phone] Jad Smith MD Unavailable Beba Mota LPN Unavailable Unavailabl e Reason for Visit * Reason Comments AWV Encounter Details Date Type Department Care Team (Late st Contact Info) Description 04/28/2025 Patient Outreach POPULATION HEALTH [address] [facility], [address] [place] [address] Beba Mota LPN VALUE-BASED TRANSFORMATION PROGRAM AWV 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 Tobacco Use Types Packs/Day Years Used Date Smoking Tobacco: Never Passive Smoke Exposure: Never Smokeless Tobacco: Never Alcohol Use Standard Drinks/Week Comments Yes 0 (1 standard drink = 0.6 oz pur e alcohol) Every now and then Humiliation, Afraid, Rape, and Kick questionnair e Answer Date Recorded Within the last year, have y ou been afraid of your partner or ex-partner? No 04/22/2024 Within the last year, have y ou been humiliated or emotionally abused in other ways by your partner or ex-partner? No Within the last year, have y ou been kicked, hit, slapped, or otherwise physically hurt by your partner or ex-partner? No 04/22/2024 Within the last year, have y ou been raped or forced to have any kind of sexual activity by your partner or ex-partner? No 04/22/2024 Social Connection and Isolation Panel Answer Date Recorded In a typical week, how many times do you talk on the phone with family, friends, or neighbors? Never 04/23/2024 How often do you get togethe r with friends or relatives? Three times a week 04/23/2024 How often do you attend chur ch or congregation services? More than 4 times per year 04/23/2024 Do you belong to any clubs o r organizations such as confucianism groups, unions, fraternal or athletic groups, or [...] Date Recorded Patient Health Questionnaire-2 Score 0 04/29/2024 [facility] - Occupational Stress Questionnaire Answer Date Recorded [...] exercise at this level? 0 min 04/23/2024 Hunger Vital Sign Answer Date Recorded Within the past 12 months, y ou worried that your food would run out before you got the money to buy more. Never true 04/22/20 24 Within the past 12 months, t he food you bought just didn't last and you didn't have money to get more. Never true 04/22/2024 PRAPARE - Transportation Answer Date Re corded In the past 12 months, has l ack of transportation kept you from medical appointments or from getting medications? No 04/02 In the past 12 months, has l ack of transportation kept you from meetings, work, or from getting things needed for daily living? No 04/22/2024 Housing Stability Vital Sign Answer Cristopher e Recorded In the last 12 months, was t here a time when you were not able to pay the mortgage or rent on time? No 04/22/2024 In the last 12 months, how many places have you lived? 1 04/22/2024 In the last 12 months, was t here a time when you did not have a steady place to sleep or slept in a fdc (including now)? No 04/22/2024 PHQ-9 Answer Date Recorded Patient Health Questionnaire-9 Score 10 08/16/2022 CAGE ASSESSMENT Answer Date Recorded Cage unable [...] drink first t chaparro in the morning (EYE-TILE ERECTOR) to steady your nerves or to get rid of a hangover? 0 07/03/2023 CAGE Questionnaire Score 0 023 Utilities Answer Date Recorded In the past 12 months has th e electric, gas, oil, or water company threatened to shut off services in your home? No 04/22/2024 PHQ-2A Answer Date Recorded Patient Health Questionnaire-2 Score 0 03/26/2023 Comments No Sex and Gender Information Value Date Recorded Sex Assigned at Female 08/08/2022 2:01 PM EST Legal Sex Female 7:17 PM EDT Gender Identity Female 08/08/2022 2:01 PM EST Sexual Orientation Not on file Travel History Travel Start Travel End [place] 04/26/2025 05/03/2025 documented as of this encounter Miscellaneous Notes * Progress Notes - Beba Mota LPN - 04/28/2025 2:27 PM EDT 04/28/2025 AWV Call # 1 Patient Reached: N Outcome: Unable to reach patient for AWV screening. LVM and call back number for return call. documented in this encounter Plan of Treatment Upcoming Encounters Date Type Department Care Team ([facility] Contact Info) Description 05/24/2025 11:00 AM EDT Office Visit [facility] [address] [place] [address] Latisha Epps, [place] [address] 06/29/2025 7:40 AM EDT Appointment [facility] [address] [place] [address] 06/29/2025 10:15 AM EDT Office Visit [facility] [address] [place] [address] Ken Horton MD [address] [facility] [address] [place] [address] 07/05/2025 9:45 AM EST Office Visit [facility] [address] [facility], [address]nd [place] [address] Desire Ojeda MD [address] [facility] [address] [place] [address] documented as of this encounter Visit Diagnoses Not on filedocumented in this encounter Additional Health Concerns Assessment Noted Time PHQ-9 Depression Total Score: 10 16/2 022 11:18 AM EST A fall risk assessment has been complete d for the patient 01/18/2025 9:47 AM EDT A Body Mass Index follow-up plan has been documented for the patient 01/18/2025 12:49 PM EDT documented as of this encounter Care Teams Baccarat Dealer Relationship Specialty Start Date End Date Latisha Epps, CARLO [address] [place] [address] PCP - General 01/12/21 Desire Ojeda MD [address] [facility] [address] [place] [address] Surgeon Cardiothoracic Surgery 03/24/23 Jad Smith MD [address] [facility] [address] [place] [address] Referring Physician Hematology and Oncology 03/24/23 Beba Mota LPN VALUE-BASED TRANSFORMATION PROGRAM Licensed Practical Nurse 04/28/25 05/03/25 documented as of this encounter
--- OUTSIDE RECORDS SUMMARY | 2025-05-20 13:41 | XMS_ITS | Encounter Summary ---
Author Organization Healthcare Address [address] [place] [address] Care Team Providers Care Book Store Associate Name Role Phone Latisha Epps APRN Primary Care Provider [phone] Desire Ojeda MD Unavailable [phone] Jad Smith MD Unavailable [phone] Beba Mota LPN Unavailable Unavailabl e Reason for Visit * Reason Comments AWV Encounter Details Date Type Department Care Team (Late st Contact Info) Description 05/03/2025 Patient Outreach POPULATION HEALTH [address] [facility], [address] [place] [address] Beba Mota LPN VALUE-BASED TRANSFORMATION [...] often do you attend chur ch or confucianism services? More than 4 times per year 04/23/2024 Do you belong to any clubs o r organizations such as methodist groups, unions, fraternal or athletic groups, or [...] Recorded Patient Health Questionnaire-2 Score 0 04/29/2024 [facility] - Occupational Stress Questionnaire Answer Date [...] place to sleep or slept in a mcc (including now)? 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-PATIENT CARE SPECIALIST) to steady your nerves or to get [...] file Travel History Travel Start Travel End [place] 04/26/2025 05/03/2025 documented as of this encounter Miscellaneous Notes * Progress Notes - Beba Mota LPN - 05/03/2025 1:49 PM EDT 05/03/2025 AWV Call # 3 Patient Reached: N Outcome: Unable to reach patient for AWV screening. LVM and call back number for return call. documented in this encounter Plan of Treatment Upcoming Encounters Date Type Department Care Team ([facility] Contact Info) Description 05/24/2025 11:00 AM EDT Office Visit [facility] [address] [place] [address] Latisha Epps, [place] [address] 06/29/2025 7:40 AM EDT Appointment [facility] [address] [place] [address] 06/29/2025 10:15 AM EDT Office Visit [facility] [address] [place] [address] Ken Horton MD [address] [place] [address] 07/05/2025 9:45 AM EST Office Visit [facility] [address] [facility], [address]nd [place] [address] Desire Ojeda MD [address] [facility] [address] [place] [address] documented as of this encounter Visit Diagnoses Not on filedocumented in this encounter Additional Health Concerns Assessment Noted Time PHQ-9 Depression Total Score: 10 08/16/ 022 11:18 AM EST A fall risk assessment has been complete d for the patient 01/18/2025 9:47 AM EDT A Body Mass Index follow-up plan has been documented for the patient 01/18/2025 12:49 PM EDT documented as of this encounter Care Teams Book Store Associate Relationship Specialty Start Date End Date Latisha Epps, CARLO [address] [place] [address] PCP - General 01/12/21 Desire Ojeda MD [address] [facility] [address] [place] [address] Surgeon Cardiothoracic Surgery 03/24/23 Jad Smith MD [address] [facility] [address] [place] [address] Referring Physician Hematology and Oncology 03/24/23 Beba Mota LPN VALUE-BASED TRANSFORMATION PROGRAM Licensed Practical Nurse 04/28/25 05/03/25 documented as of this encounter
--- OUTSIDE RECORDS SUMMARY | 2025-05-20 13:41 | XMS_ITS | Encounter Summary ---
Author Organization [facility] Address [address] [place] [address] Care Team Providers Care Metal Bed Assembler Name Role Phone Latisha Epps APRN Primary Care Provider [phone] Desire Ojeda MD Unavailable [phone] Jad Smith MD Unavailable [phone] Encounter Details Date Type Department Care Team (Late st Contact Info) Description 04/07/2025 Orders Only [facility] [address] [place] [address] Latisha Epps APRN [address] [place] [address] Essential hypertension; Hyperlipidemia, unspecified hyperlipidemia type 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 Tobacco Use Types Packs/Day Years [...] often do you attend chur ch or samaritan services? More than 4 times per year 04/23/2024 Do you belong to any clubs o r organizations such as hindu groups, unions, fraternal or athletic groups, or [...] Recorded Patient Health Questionnaire-2 Score 0 04/29/2024 [facility] - [facility]ational Stress Questionnaire Answer Date Recorded [...] place to sleep or slept in a long-term (including now)? 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-KID CLUB ATTENDANT) to steady your nerves or to get [...] file Travel History Travel Start Travel End [place] 04/26/2025 05/03/2025 documented as of this encounter Plan of Treatment Upcoming Encounters Date Type Department Care Team (Late st Contact Info) Description 05/24/2025 11:00 AM EDT Office Visit [facility] [address] [place] [address] Latisha Epps APRN [address] [place] [address] 06/29/2025 7:40 AM EDT Appointment [facility] [address] [place] [address] 06/29/2025 10:15 AM EDT Office Visit [facility] [address] [place] [address] Ken Horton MD [address] [place] [address] 07/05/2025 9:45 AM EST Office Visit [facility] [address] [facility], 2nd [place] [address] Desire Ojeda MD [address] [place] [address] documented as of this encounter Visit Diagnoses Diagnosis Essential hypertension Unspecified essential hypertension Hyperlipidemia, unspecified hyperlipidemia type documented in this encounter Additional Health Concerns Assessment Noted Time PHQ-9 Depression Total Score: 10 1216/2 022 11:18 AM EST A fall risk assessment has been complete d for the patient 01/18/2025 9:47 AM EDT A Body Mass Index follow-up plan has been documented for the patient 01/18/2025 12:49 PM EDT documented as of this encounter Care Teams Metal Bed Assembler Relationship Specialty Start Date End Date Latisha Epps APRN [address] [place] [address] PCP - General 01/12/21 Desire Ojeda MD [address] [place] [address] Surgeon Cardiothoracic Surgery 03/24/23 Jad Smith MD [facility] [place] [address] Referring Physician Hematology and Oncology 03/24/23 documented as of this encounter
--- OUTSIDE RECORDS SUMMARY | 2025-05-20 13:41 | XMS_ITS | Encounter Summary ---
Author Organization Healthcare Address [address] [place] [address] Care Team Providers Care Labeling Strategist Name Role Phone Latisha Epps APRN Primary Care Provider [phone] Desire Ojeda MD Unavailable [phone] Jad Smith MD Unavailable [phone] Beba Mota LPN Unavailable Unavailabl e Reason for Visit * Reason Comments AWV Encounter Details Date Type Department Care Team (Late st Contact Info) Description 04/29/2025 Patient Outreach POPULATION HEALTH [address] [facility], [address] [place] [address] Beba Mota LPN VALUE-BASED TRANSFORMATION [...] often do you attend chur ch or sabianism services? More than 4 times per year 04/23/2024 Do you belong to any clubs o r organizations such as zoroastrian groups, unions, fraternal or athletic groups, or [...] Recorded Patient Health Questionnaire-2 Score 0 04/29/2024 [facility] - Occupational Stress Questionnaire Answer [...] place to sleep or slept in a half-way (including now)? 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-LEAD TELLER) to steady your nerves or to get [...] file Travel History Travel Start Travel End [place] 04/26/2025 05/03/2025 documented as of this encounter Miscellaneous Notes * Progress Notes - Beba Mota LPN - 04/29/2025 11:32 AM EDT 04/29/2025 AWV Call # 2 Patient Reached: N Outcome: Unable to reach patient for AWV screening. LVM and call back number for return call. documented in this encounter Plan of Treatment Upcoming Encounters Date Type Department Care Team ([facility] Contact Info) Description 05/24/2025 11:00 AM EDT Office Visit [facility] [address] [place] [address] Latisha Epps, CARLO [address] [place] [address] 06/29/2025 7:40 AM EDT Appointment [facility] [address] [place] [address] 06/29/2025 10:15 AM EDT Office Visit [facility] [address] [place] [address] Ken Horton MD [address] [facility] [address] [place] [address] 07/05/2025 9:45 AM EST Office Visit [facility] [address] [facility], [address]nd [place] [address] Desire Ojeda MD [address] [facility] [address] [place] [address] documented as of this encounter [...] documented as of this encounter Care Teams Labeling Strategist Relationship Specialty Start Date End Date Latisha Epps, CARLO [address] [place] [address] PCP - General 01/12/21 Desire Ojeda MD [address] [facility] [address] [place] [address] Surgeon Cardiothoracic Surgery 03/24/23 Jad Smith MD [address] [facility] [address] [place] [address] Referring Physician Hematology and Oncology 03/24/23 Beba Mota LPN VALUE-BASED TRANSFORMATION PROGRAM Licensed Practical Nurse 04/28/25 05/03/25 documented as of this encounter
--- OUTSIDE RECORDS SUMMARY | 2025-05-20 13:41 | XMS_ITS | Encounter Summary ---
Author Organization [facility] Address [address] [place] [address] Care Team Providers Care Bread Panner Name Role Phone Latisha Epps APRN Primary Care Provider Desire Ojeda MD Unavailable Jad Smith MD Unavailable [phone] Suzanne Wheeler VIDEOTAPE OPERATOR Unavailable Unavailab Beba Ritchie VIDEOTAPE OPERATOR Unavailable Unavailabl e Encounter Details Date Type Department Care Team (Late st Contact Info) Description 03/17/2023 Outside Procedure External Location [address] [place] [address] Provider, [facility] 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 Tobacco Use Types Packs/Day Years Used Date Smoking Tobacco: Never Smokeless Tobacco: Never Alcohol Use Standard Drinks/Week Comments Yes 0 (1 standard drink = 0.6 oz pure alcohol) Alcoholic Drinks/day: Social alcohol use PHQ-2 Answer Date Recorded Patient Health Questionnaire-2 Score 0 03/06/2023 PHQ-9 Answer Date Recorded Patient Health Questionnaire-9 Score 10 08/16/2022 Comments Unknown Sex and Gender Information Value Date Recorded Sex Assigned at Female 08/08/2022 2:01 PM EST Legal Sex Female 7:17 PM EDT Gender Identity Female 08/08/2022 2:01 PM EST Sexual Orientation Not on file Travel History Travel Start Travel End [place] 04/26/2025 05/03/2025 documented as of this encounter Plan of Treatment Upcoming Encounters Date Type Department Care Team (Late Contact Info) Description 05/24/2025 11:00 AM EDT Office Visit [facility] [address] [place] [address] Latisha Epps, SOCIAL SERVICES COORDINATOR [address] [place] [address] 06/29/2025 7:40 AM EDT Appointment [facility] [address] [place] [address] 06/29/2025 10:15 AM EDT Office Visit [facility] [address] [place] [address] Ken Horton MD [address] [place] [address] 07/05/2025 9:45 AM EST Office Visit [facility] [address] [facility], 2nd [place] [address] Desire Ojeda MD [address] [place] [address] documented as of this encounter Procedures Procedure Name Priority Date/Time Associated Diagnosis Comments XR CHEST 2 VIEWS 03/17/2023 11:3 0 AM EDT documented in this encounter Results * XR Chest 2 Views (03/17/2023 11:30 AM EDT) Anatomical Region Laterality Modality Chest Digital Radiogra phy 03/17/2023 11:3 0 AM EDT Narrative 03/17/2023 12:08 PM EDT [address] [place] [address] Name: IRENA KRUEGER Exam Date: 03/17/2023 : 1955 Age 68 Gender: F Physician: [facility] Facility: [facility] Facility HSV: Outpatient Exam: CHEST 2 VIEWS CHEST, 2 views HISTORY: Pneumothorax post-lung biopsy. COMPARISON: Same day FINDINGS: Stable small right apical pneumothorax. Known right lower lobe mass unchanged. Basilar atelectasis on the left. There is no evidence of effusion. The mediastinum has a normal appearance. The cardiac silhouette is unremarkable. No acute osseous changes. IMPRESSION: Stable small right apical pneumothorax. Continued follow-up recommended. Dictated By: NINA JOHNSTON Transcribed By: Nina Johnston Transcribed On: 03/17/2023 11:56 AM Electronically signed by: NINA JOHNSTON 03/17/2023 Thank you for referring IRENA KRUEGER to [facility]. Legally authenticated by POPE NINA Schuster 2023-03-17 11:56:25 Procedure Note Provider, [facility] 03/17/2023 [place] [address] Name: IRENA KRUEGER Exam Date: 03/17/2023 : 1955 Age 68 Gender: F Physician: [facility] FRANKS Facility: [facility] Facility HSV: Outpatient Exam: CHEST 2 VIEWS CHEST, 2 views HISTORY: Pneumothorax post-lung biopsy. COMPARISON: Same day FINDINGS: Stable small right apical pneumothorax. Known right lower lobemass unchanged. Basilar atelectasis on the left. There is no evidence of effusion. The mediastinum has a normal appearance.The cardiac silhouette is unremarkable. No acute osseous changes. IMPRESSION: Stable small right apical pneumothorax. Continued follow-up recommended. Dictated By: NINA JOHNSTON Transcribed By: Nina Johnston Transcribed On: 03/17/2023 11:56 AM Electronically signed by: NINA JOHNSTON 03/17/2023 Thank you for referring IRENA KRUEGER to [facility]. Legally authenticated by POPE NINA Schuster 2023-03-17 11:56:25 Generic [place] Provider IMG XR PROCEDURES Fi nal Result documented in this encounter Visit Diagnoses Not on filedocumented in this encounter Additional Health Concerns Assessment Noted Time PHQ-9 Depression Total Score: 10 08/16/ 022 11:18 AM EST A fall risk assessment has been complete d for the patient 03/06/2023 3:39 PM EDT A Body Mass Index follow-up plan has been documented for the patient 03/06/2023 4:19 PM EDT documented as of this encounter Care Teams Bread Panner Relationship Specialty Start Date End Date Latisha Epps APRN [address] [place] [address] PCP - General 01/12/21 Desire Ojeda MD [address] [facility] [address] [place] [address] Surgeon Cardiothoracic Surgery 03/24/23 Jad Smith MD [address] [facility] [address] [place], [place] [id number] Referring Physician Hematology and Oncology 03/24/23 Suzanne Wheeler LPN VALUE-BASED TRANSFORMATION PROGRAM Licensed Practical Nurse 04/19/24 05/25/24 Beba Mota LPN VALUE-BASED TRANSFORMATION PROGRAM Licensed Practical Nurse 04/28/25 05/03/25 documented as of this encounter
--- OUTSIDE RECORDS SUMMARY | 2025-05-20 13:42 | XMS_ITS | Encounter Summary ---
Author Organization Healthcare Address [address] [place] [address] Care Team Providers Care Utilities Manager Name Role Phone Latisha Julio APRN Primary Care Provider [phone] Desire Ojeda MD Unavailable [phone] Jad Smith MD Unavailable [phone] Beba Mota LPN Unavailable Unavailabl e Encounter Details Date Type Department Care Team (Late st Contact Info) Description 01/27/2025 Outside Procedure External Location [address] [place] [address] Latisha Julio, [employer] [address] [place] [address] 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 Tobacco Use Types Packs/Day Years [...] often do you attend chur ch or buddhist services? More than 4 times per year 04/23/2024 Do you belong to any clubs o r organizations such as pentecostal groups, unions, fraternal or athletic groups, or [...] Recorded Patient Health Questionnaire-2 Score 0 04/29/2024 [facility] - Occupational Stress Questionnaire Answer [...] place to sleep or slept in a halfway (including now)? 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-BOOKKEEPING SERVICE SALES AGENT) to steady your nerves or to get [...] file Travel History Travel Start Travel End [place] 04/26/2025 05/03/2025 documented as of this encounter Plan of Treatment Upcoming Encounters Date Type Department Care Team (Late st Contact Info) Description 05/24/2025 11:00 AM EDT Office Visit [facility] [address] [place] [address] Latisha Julio, [employer] [address] [place] [address] 06/29/2025 7:40 AM EDT Appointment [facility] [address] [place] [address] 06/29/2025 10:15 AM EDT Office Visit [facility] [address] [place] [address] Ken Horton MD [address] [place] [address] 07/05/2025 9:45 AM EST Office Visit [facility] [address] [facility], 2nd [place] [address] Desire Ojeda MD [address] [place] [address] documented as of this encounter Procedures Procedure Name Priority Date/Time Associated Diagnosis Comments MAMMOGRAPHY BREAST POST BIOPSY CLIP RIGHT 01/27/2025 12:15 PM EDT documented in this encounter Results * Mammography Breast Post Biopsy Clip Right (01/27/2025 12:15 PM EDT) Anatomical Region Laterality Modality Breast Right Mammography 01/27/2025 12:1 5 PM EDT Narrative 01/27/2025 2:01 PM EDT [facility] [address] [place] [address] Name: ROBERTO KRUEGER Exam Date: 01/27/2025 : 1955 Age 70 years Gender: F Physician: LATISHA JULIO Facility: [facility] Facility HSV: Outpatient Exam: JOSE DIAG MAMMO W/CAD RT Exam: 1.Right Diagnostic Mammogram with 2D and 3D (tomosynthesis)imaging 2.Right Breast Ultrasound Clinical indication: Follow up inner right breast asymmetry as well as probably benign right breast mass at the 3:00 and 4:00 position Comparison: Exams to 2019 TECHNIQUE: Diagnostic Bilateral 2D mammography and 3D (tomosynthesis) imaging were performed.Targeted ultrasound assessing juarez-scale and color flow performed. BREAST DENSITY:The breasts are heterogeneously dense, which may obscure small masses. FINDINGS: Mammography: Stable inner posterior right breast mass. Numerous additional circumscribed masses throughout the right breast are stable most consistent with benign waxing and waning cysts. Ultrasound: Right breast: 3:00, 9 cm from the nipple, benign appearing complicated cyst with thin septations measuring 5 x 5 x 7 mm. Resolution of previously seen hypoechoic area at the 4:00 position IMPRESSION: Stable right breast mass at 3:00 and inner right breast asymmetry mammographically. Recommendation: Continued follow-up of probably benign right breast findings recommended in 6 months at the time of annual diagnostic mammography to document one-year stability. The results of this report will be reported to the patient by letter in layman's terms. ACR BI-RADS:3 - Probably Benign Findings Mammography does not detect approximately 10-15% of breast cancers. A normal mammogram does not exclude breast cancer in a patient with palpable mass or abnormal findings on physical examination. These patients may need biopsies and when clinically indicated a biopsy should not be postponed because of a normal mammogram. If the patient has breast surgery or biopsy, FDA/SA Regulatory Guidelines mandate that this facility receive pathologic results for follow-up correlation. Legally authenticated by ANGELITA ZAMORANO 2025-01-27 13:57:42 Electronically signed by: Arnulfo Fiore MD 01/27/2025 01:57 PM EDT RP Dictated By: Arnulfo Fiore Transcribed By: Transcribed On: 01/27/2025 1:57 PM Electronically signed by: Arnulfo Fiore 01/27/2025 Thank you for referring ROBERTO KRUEGER to [facility]. Legally authenticated by ANGELTIA ZAMORANO 2025-01-27 13:57:42 Procedure Note Provider, Generic [place] - 01/27/2025 [facility] [address] [place] [address] Name: ROBERTO KRUEGER Exam Date: 01/27/2025 : 1955 Age 70 years Gender: F Physician: LATISHA JULIO Facility: [facility] Facility HSV: Outpatient Exam: JOSE DIAG MAMMO W/CAD RT Exam: 1.Right Diagnostic Mammogram with 2D and 3D (tomosynthesis)imaging 2.Right Breast Ultrasound Clinical indication: Follow up inner right breast asymmetry as well as probably benign right breast mass at the 3:00 and 4:00 position Comparison: Exams to 2019 TECHNIQUE: Diagnostic Bilateral 2D mammography and 3D (tomosynthesis)imaging were performed.Targeted ultrasound assessing juarez-scale and color flow performed. BREAST DENSITY:The breasts are heterogeneously dense, which may obscuresmall masses. FINDINGS: Mammography: Stable inner posterior right breast mass. Numerous additionalcircumscribed masses throughout the right breast are stable most consistent withbenign waxing and waning cysts. Ultrasound: Right breast: 3:00, 9 cm from the nipple, benign appearing complicated cyst with thin septations measuring 5 x 5 x 7 mm. Resolution of previously seen hypoechoic area at the 4:00 position IMPRESSION: Stable right breast mass at 3:00 and inner right breast asymmetry mammographically. Recommendation: Continued follow-up of probably benign right breast findings recommendedin 6 months at the time of annual diagnostic mammography to document one-year stability. The results of this report will be reported to the patient by letter in layman's terms. ACR BI-RADS:3 - Probably Benign Findings Mammography does not detect approximately 10-15% of breast cancers. Anormal mammogram does not exclude breast cancer in a patient with palpable massor abnormal findings on physical examination. These patients may needbiopsies and when clinically indicated a biopsy should not be postponed because ofa normal mammogram. If the patient has breast surgery or biopsy, FDA/SA Regulatory Guidelines mandate that this facility receive pathologicresults for follow-up correlation. Legally authenticated by ANGELITA ZAMORANO 2025-01-27 13:57:42 Electronically signed by: Arnulfo Fiore MD 01/27/2025 01:57 PM EDTRP Dictated By: Arnulfo Fiore Transcribed By: Transcribed On: 01/27/2025 1:57 PM Electronically signed by: Arnulfo Fiore 01/27/2025 Thank you for referring ROBERTO KRUEGER to [facility]. Legally authenticated by ANGELITA ZAMORANO 2025-01-27 13:57:42 us Latisha Julio APRN IMG BI PROCEDURES Final Res ult documented in this encounter Visit Diagnoses Not on filedocumented in this encounter Additional Health Concerns Assessment Noted Time PHQ-9 Depression Total Score: 10 022 11:18 AM EST A fall risk assessment has been complete d for the patient 01/18/2025 9:47 AM EDT A Body Mass Index follow-up plan has been documented for the patient 01/18/2025 12:49 PM EDT documented as of this encounter Care Teams Utilities Manager Relationship Specialty Start Date End Date Latisha Julio APRN [address] [place] [phone] PCP - General 01/12/21 Desire Ojeda MD [address] [place] [address] Surgeon Cardiothoracic Surgery 03/24/23 Jad Smith MD [address] [place] [address] Referring Physician Hematology and Oncology 03/24/23 Beba Mota LPN VALUE-BASED TRANSFORMATION PROGRAM Licensed Practical Nurse 04/28/25 05/03/25 documented as of this encounter
--- OUTSIDE RECORDS SUMMARY | 2025-05-20 13:42 | XMS_ITS | Encounter Summary ---
Author Organization [facility] Address [address] [place] [address] Care Team Providers Care Gate Tender Name Role Phone Latisha Epps APRN Primary Care Provider [phone] Desire Ojeda MD Unavailable [phone] Jad Smith MD Unavailable [phone] Reason for Visit * Reason Comments Med Refill Encounter Details Date Type Department Care Team (Late st Contact Info) Description 04/24/2025 Refill [facility] [address] [place] [address] Latisha Epps APRN [address] [place] [address] Anxiety 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 Tobacco Use Types Packs/Day Years [...] often do you attend chur ch or druze services? More than 4 times per year 04/23/2024 Do you belong to any clubs o r organizations such as samaritan groups, unions, fraternal or athletic groups, or [...] Recorded Patient Health Questionnaire-2 Score 0 04/29/2024 [facility] - Occupational Stress Questionnaire [...] place to sleep or slept in a mcfp (including now)? 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 Please keep upcoming appointment 05/06/2025 for additional refills. Medications have been pended for refill at upcoming appointment. documented in this encounter Plan of Treatment Upcoming Encounters Date Type Department Care Team (Late st Contact Info) Description 05/24/2025 11:00 AM EDT Office Visit [facility] [address] [place] [address] Latisha Epps, PUBLIC WORKS INSPECTOR [address] [place] [address] 06/29/2025 7:40 AM EDT Appointment [facility] [address] [place] [address] 06/29/2025 10:15 AM EDT Office Visit [facility] [address] [place] [address] Ken Horton MD [address] [facility] [address] [place] [address] 07/05/2025 9:45 AM EST Office Visit [facility] [address] [facility], 2nd [place] [address] Desire Ojeda MD [address] [facility] [address] [place] [address] documented as of this encounter Visit Diagnoses Diagnosis Anxiety Anxiety state, unspecified documented in this encounter Additional Health Concerns Assessment Noted Time PHQ-9 Depression Total Score: 10 1216/2 022 11:18 AM EST A fall risk assessment has been complete d for the patient 01/18/2025 9:47 AM EDT A Body Mass Index follow-up plan has been documented for the patient 01/18/2025 12:49 PM EDT documented as of this encounter Care Teams Gate Tender Relationship Specialty Start Date End Date Latisha Epps APRN [address] [place] [phone] PCP - General 01/12/21 Desire Ojeda MD [address] [facility] [address] [place] [address] Surgeon Cardiothoracic Surgery 03/24/23 Jad Smith MD [address] [facility] [address] [place], [place] [address] Referring Physician Hematology and Oncology 03/24/23 documented as of this encounter
--- OUTSIDE RECORDS SUMMARY | 2025-05-20 13:42 | XMS_ITS | Encounter Summary ---
Author Organization [facility] Address [address] [place] [address] Care Team Providers Care Sensor Operator Name Role Phone Latisha Epps APRN Primary Care Provider [phone] Desire Ojeda MD Unavailable [phone] Jad Smith MD Unavailable [phone] Reason for Visit * Reason Onset Date Comments Med Refill 04/06/2025 Encounter Details Date Type Department Care Team (Late st Contact Info) Description 04/06/2025 Refill [facility] [address] [place] [address] Latisha Epps APRN [address] [place] [address] Hyperlipidemia, unspecified hyperlipidemia type 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 Tobacco [...] week 04/23/2024 How often do you attend [facility] or [facility]eter[facility] services? More than 4 times per year 04/23/2024 Do you belong to any clubs o r organizations such as cheondoism groups, unions, fraternal or athletic groups, or [...] Recorded Patient Health Questionnaire-2 Score 0 04/29/2024 [facility] - Occupational Stress Questionnaire Answer [...] place to sleep or slept in a correction (including now)? 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-DIRECT MARKETING ANALYST) to steady your nerves or to get [...] file Travel History Travel Start Travel End [place] 04/26/2025 05/03/2025 documented as of this encounter Miscellaneous Notes * Telephone Encounter - Carlene Giang PharmD - 04/08/2025 2:05 PM EDT 1 medication(s) has been denied per protocol due to: Duplicate request prescription sent yesterday documented in this encounter Plan of Treatment Upcoming Encounters Date Type Department Care Team ([facility] Contact Info) Description 05/24/2025 11:00 AM EDT Office Visit [facility] [address] [place] [address] Latisha Epps APRN [address] [place] [address] 06/29/2025 7:40 AM EDT Appointment [facility] [address] [place] [address] 06/29/2025 10:15 AM EDT Office Visit [facility] [address] [place] [address] Ken Horton MD [address] [place] [address] 07/05/2025 9:45 AM EST Office Visit [facility] [address] [facility], [address]nd [place] [address] Desire Ojeda MD [address] [place] [address] documented as of this encounter Visit Diagnoses Diagnosis Hyperlipidemia, unspecified hyperlipidemia type documented in this encounter Additional Health Concerns Assessment Noted Time PHQ-9 Depression Total Score: 10 022 11:18 AM EST A fall risk assessment has been complete d for the patient 01/18/2025 9:47 AM EDT A Body Mass Index follow-up plan has been documented for the patient 01/18/2025 12:49 PM EDT documented as of this encounter Care Teams Sensor Operator Relationship Specialty Start Date End Date Latisha Epps APRN [address] [place] [phone] PCP - General 01/12/21 Desire Ojeda MD [address] [facility] [address] [place] [address] Surgeon Cardiothoracic Surgery 03/24/23 Jad Smith MD [address] [facility] [address] [place] [address] Referring Physician Hematology and Oncology 03/24/23 documented as of this encounter
--- OUTSIDE RECORDS SUMMARY | 2025-05-20 13:42 | XMS_ITS | Encounter Summary ---
Author Organization [facility] Address [address] [place] [address] Care Team Providers Care Employee Relations Advisor Name Role Phone Latisha Epps APRN Primary Care Provider Desire Ojeda MD Unavailable [phone] Jad Smith MD Unavailable [phone] Suzanne Wheeler FINAL INSPECTOR PAPER Unavailable Unavailab Beba Ritchie FINAL INSPECTOR PAPER Unavailable Unavailabl e Encounter Details Date Type Department Care Team (Late st Contact Info) Description 03/17/2023 Outside Procedure External Location [address] [place] [address] Provider, [facility] 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 Tobacco Use Types Packs/Day Years [...] Description 05/24/2025 11:00 AM EDT Office Visit [facility] [address] [place] [address] Latisha Epps, FISHER OYSTER [address] [place] [address] 06/29/2025 7:40 AM EDT Appointment [facility] [address] [place] [address] 06/29/2025 10:15 AM EDT Office Visit [facility] [address] [place] [address] Ken Horton MD [address] [place] [address] 07/05/2025 9:45 AM EST Office Visit [facility] [address] [facility], 2nd [place] [address] Desire Ojeda MD [address] [place] [address] documented as of this encounter Procedures Procedure Name Priority Date/Time Associated Diagnosis Comments XR CHEST 2 VIEWS 03/17/2023 9:20 AM EDT documented in this encounter Results * XR Chest 2 Views (03/17/2023 9:20 AM EDT) Anatomical Region Laterality Modality Chest Digital Radiogra phy 03/17/2023 9:20 AM EDT Narrative 03/17/2023 10:17 AM EDT [address] [address] Name: IRENA KRUEGER Exam Date: 03/17/2023 : 1955 Age 68 Gender: F Physician: UMM KONG Facility: [facility] Facility HSV: Outpatient Exam: CHEST 2 VIEWS TWO VIEW CHEST HISTORY: Status post lung biopsy. COMPARISON: None. FINDINGS: The cardiac silhouette is normal in size. The mediastinum is unremarkable. Patient's known right lower lobe mass is identified. There is basilar atelectasis. There is a tiny right apical pneumothorax. Osseous structures demonstrate no acute abnormality. IMPRESSION: Tiny right apical pneumothorax. Continued follow-up is recommended. The films were reviewed, interpreted, and dictated by Dr. Nina Johnston Transcribed by Umm Kong PA-C Dictated By: NINA JOHNSTON Transcribed By: Nina Johnston Transcribed On: 03/17/2023 10:05 AM Electronically signed by: NINA JOHNSTON 03/17/2023 Thank you for referring IRENA KRUEGER to [facility]. Legally authenticated by POPE NINA Schuster 2023-03-17 10:05:15 Procedure Note Provider, [facility] - 03/17/2023 [place] [address] Name: IRENA KRUEGER Exam Date: 03/17/2023 : 1955 Age 68 Gender: F Physician: UMM KONG Facility: [facility] Facility HSV: Outpatient Exam: CHEST 2 VIEWS TWO VIEW CHEST HISTORY: Status post lung biopsy. COMPARISON: None. FINDINGS: The cardiac silhouette is normal in size. The mediastinum is unremarkable. Patient's known right lower lobe mass is identified. Thereis basilar atelectasis. There is a tiny right apical pneumothorax. Osseous structures demonstrate no acute abnormality. IMPRESSION: Tiny right apical pneumothorax. Continued follow-up is recommended. The films were reviewed, interpreted, and dictated by Dr. Nina Johnston Transcribed by Umm Kong PA-C Dictated By: NINA JOHNSTON Transcribed By: Nina Johnston Transcribed On: 03/17/2023 10:05 AM Electronically signed by: NINA JOHNSTON 03/17/2023 Thank you for referring IRENA KRUEGER to [facility]. Legally authenticated by POPE NINA Schuster 2023-03-17 10:05:15 Generic [place] Provider IMG XR PROCEDURES Fi nal Result [...] documented as of this encounter Care Teams Employee Relations Advisor Relationship Specialty Start Date End Date Latisha Epps APRN [address] [place] [address] PCP - General 01/12/21 Desire Ojeda MD [address] [place] [address] Surgeon Cardiothoracic Surgery 03/24/23 Jad Smith MD [address] [facility] [address] [place], [place] [phone] Referring Physician Hematology and Oncology 03/24/23 Suzanne Wheeler LPN VALUE-BASED TRANSFORMATION PROGRAM Licensed Practical Nurse 04/19/24 05/25/24 Beba Mota LPN VALUE-BASED TRANSFORMATION PROGRAM Licensed Practical Nurse 04/28/25 05/03/25 documented as of this encounter
--- OUTSIDE RECORDS SUMMARY | 2025-05-20 13:42 | XMS_ITS | Encounter Summary ---
Author Organization Healthcare Address [address] [place] [address] Care Team Providers Care Instructional Support Services Director Name Role Phone Latisha Julio APRN Primary Care Provider [phone] Desire Ojeda MD Unavailable [phone] Jad Smith MD Unavailable [phone] Beba Mota LPN Unavailable Unavailabl e Encounter Details Date Type Department Care Team (Late st Contact Info) Description 01/27/2025 Outside Procedure External Location [address] [place] [address] Latisha Julio, CONVERTING OPERATOR [address] [place] [address] 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 Tobacco Use Types [...] often do you attend chur ch or restorationism services? More than 4 times per year 04/23/2024 Do you belong to any clubs o r organizations such as anabaptist groups, unions, fraternal or athletic groups, or [...] Recorded Patient Health Questionnaire-2 Score 0 04/29/2024 [facility] Occup[facility] ional Health - Occupational Stress [...] drink first t chaparro in the morning (EYE-COMFORT STATION SUPERVISOR) to steady your nerves or to get [...] file Travel History Travel Start Travel End [place] 04/26/2025 05/03/2025 documented as of this encounter Plan of Treatment Upcoming Encounters Date Type Department Care Team (Late st Contact Info) Description 05/24/2025 11:00 AM EDT Office Visit [facility] [address] [place] [address] Latisha Julio, CONVERTING OPERATOR [address] [place] [address] 06/29/2025 7:40 AM EDT Appointment [facility] [address] [place] [address] 06/29/2025 10:15 AM EDT Office Visit [facility] [address] [place] [address] Ken Horton MD [address] [place] [address] 07/05/2025 9:45 AM EST Office Visit [facility] [address] [facility], 2nd [place] [address] Desire Ojeda MD [address] [place] [address] documented as of this encounter Procedures Procedure Name Priority Date/Time Associated Diagnosis Comments US BREAST LIMITED RIGHT 01/27/2025 1:12 PM EDT documented in this encounter Results * US Breast Limited Right (01/27/2025 1:12 PM EDT) Anatomical Region Laterality Modality Breast Right Ultrasound 01/27/2025 1:12 PM EDT Narrative 01/27/2025 2:00 PM EDT [facility] [address] [place] [address] Name: ROBERTO KRUEGER Exam Date: 01/27/2025 : 1955 Age 70 years Gender: F Physician: LATISHA JULIO Facility: [facility] Facility HSV: Outpatient Exam: US BREAST LTD RT Exam: 1.Right Diagnostic Mammogram with 2D [...] Arnulfo Fiore 01/27/2025 Thank you for referring [facility] to [facility]. Legally authenticated by ANGELITA ZAMORANO 2025-01-27 13:57:42 Procedure Note Provider, [facility] - 01/27/2025 [facility] [address] [place] [address] Name: ROBERTO KRUEGER Exam Date: 01/27/2025 : 1955 Age 70 years Gender: F Physician: LATISHA JULIO Facility: [facility] Facility HSV: Outpatient Exam: US BREAST LTD RT Exam: 1.Right Diagnostic Mammogram with 2D [...] Thank you for referring [facility] to [facility]. Legally authenticated by ANGELITA ZAMORANO 2025-01-27 13:57:42 [...] documented as of this encounter Care Teams Instructional Support Services Director Relationship Specialty Start Date End Date Latisha Julio APRN [address] [place] [address] PCP - General 01/12/21 Desire Ojeda MD [address] [place] [address] Surgeon Cardiothoracic Surgery 03/24/23 Jad Smith MD [address] [place] [address] Referring Physician Hematology and Oncology 03/24/23 Beba Mota LPN VALUE-BASED TRANSFORMATION PROGRAM Licensed Practical Nurse 04/28/25 05/03/25 documented as of this encounter
--- OUTSIDE RECORDS SUMMARY | 2025-05-20 13:42 | XMS_ITS | Clinical Summary ---
Author Organization [facility] Address [address] [place] [address] Care Team Providers Care Customer Success Representative Name Role Phone Latisha Epps APRN Primary Care Provider [phone] Desire Ojeda MD Unavailable [phone] Jad Smith MD Unavailable Allergies Active Allergy Reactions Criticality Noted Date Comments Diphenhydramine Other - please docum ent in the comment field Low 09/23/2018 Benadryl Restless leg Medications metFORMIN (Glucophage) 500 MG tabletIndications: Type 2 diabetes mellitus without complication, without long-term current use of insulin Take 1 tablet by mouth twice daily 180 tablet 03/03/20 25 Active atorvastatin (Lipitor) 20 MG tabletIndications: Hyperlipidemia, unspecified hyperlipidemia type Take 1 tablet by mouth daily. 90 tablet 04/07/20 25 Active FLUoxetine (PROzac) 20 MG capsuleIndications :Anxiety TAKE 3 CAPSULES BY MOUTH ONCE DAILY 90 capsule 04/25/20 25 Active ergocalciferol 1.25 MG (00019 UT) capsule Take 1 capsule (50,000 Units) by mouth 1 (one) time per week. DIRECTED 11/20/19 24 025 Discontinued FLUoxetine (PROzac) 20 MG capsuleIndications :Anxiety Take 3 capsules (60 mg) by mouth 1 (one) time each day. 270 capsule 3 05/10/20 24 025 Discontinued lisinopril 5 MG tabletIndications: Essential hypertension Take 1 tablet by mouth once daily 90 tablet 02/19/20 25 025 Discontinued Active Problems Problem Noted Date Diagnosed Date At high risk for falls 04/30/2024 Obesity (BMI 30-39.9) 07/04/2023 Overview (07/04/2023): BMI 30.49 on POD1 Complicates recovery Lung mass 07/03/2023 Overview (07/04/2023): 07/03/2023: Bronchoscopy, right thoracoscopic lower lobectomy, mediastinal lymph node dissection, intercostal nerve blocks Chest tube in place Pain control Pathology pending Refusal of blood transfusion s as patient is Sikh 05/09/2023 Overview (07/04/2023): Avoid routine labs Renal mass 05/01/2023 Overview (07/04/2023): 05/09/2023: S/p Open right partial nephrectomy Breast screening 04/03/2020 Hyperlipidemia 04/14/2019 Overview (07/04/2023): Resume home medications as appropriate. Anxiety 09/24/2018 Overview (07/04/2023): Resume home medications as appropriate. Diabetes mellitus, type II 09/24/2018 Overview (07/04/2023): Monitor fingersticks BID SSI Resume home medications as appropriate. Essential hypertension 09/24/2018 Overview (07/04/2023): Resume home medications as appropriate. Encounters Date Type Department Care Team Description 05/11/2025 Results Follow-Up [facility] [address] [place] [phone] Latisha Epps APRN 05/10/2025 10:40 AM EDT Office Visit [facility] [address] [place] [address] Latisha Epps, CARPET YARN WINDER OPERATOR Type 2 diabetes mellitus without complication, without long-term current use of insulin (Primary Dx); Essential hypertension; Other fatigue; Vertigo 05/10/2025 Travel 05/05/2025 Travel 05/03/2025 Patient Outreach [facility] [address] [place] [address] Beba Mota LPN AWV 04/29/2025 Patient Outreach [facility] [address] [place] [address] Beba Mota LPN AWV 04/28/2025 Patient Outreach [facility] [address] [place] [address] Beba Mota LPN AWV 04/24/2025 Refill [facility] [address] [place] [address] Latisha Epps APRN Anxiety 04/07/2025 Orders Only [facility] [address] [place] [address] Latisha Epps APRN Essential hypertension; Hyperlipidemia, unspecified hyperlipidemia type 04/06/2025 Refill [facility] [address] [place] [address] Latisha Epps APRN Hyperlipidemia, unspecified hyperlipidemia type 04/04/2025 Refill [facility] [address] [place] [address] Latisha Epps APRN Essential hypertension 03/02/2025 Refill [facility] [address] [place] [address] Latisha Epps APRN Hyperlipidemia, unspecified hyperlipidemia type; Type 2 diabetes mellitus without complication, without long-term current use of insulin from Last 3 Months Immunizations Immunization Administration Dates Next Due Influenza, high-dose, quadrivalent 08/16/2022 Influenza, injectable, quadrivalent, preservativ e free 06/09/2020 tracx COVID-19 Vaccine (Purple Cap) 12 + 03/01/2021,02/08/2021 Family History Medical History Relation Name Comments Hearing loss Father Eddie () Hearing loss Mother Deborah () Stroke Mother Deborah () Vision loss Mother Deborah () Stroke Other 1 Coronary artery disease Other 2 Diabetes Other 3 Cancer Sister 1 Pat () Cancer Sister 2 Jesica Depression Sister 2 Jesica Diabetes Sister 2 Jesica Anesthesia problems Neg Hx Malig Hyperthermia Neg Hx Relation Name Status Comments Father Eddie () Mother Deborah () Other 1 Other 2 Other 3 Sister 1 Pat () Sister 2 Jesica 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 Tobacco Use Types Packs/Day Years Used Date Smoking Tobacco: Never Passive Smoke Exposure: Never Smokeless Tobacco: Never Tobacco Cessation:Counseling Given: No Alcohol Use Standard Drinks/Week Comments Yes 0 [...] week 04/23/2024 How often do you attend [facility] or mormonism services? More than 4 times per year [...] Recorded Patient Health Questionnaire-2 Score 0 05/10/2025 [facility] [place] [facility] - Occupational Stress [...] any time in the past 12 m [facility], were you homeless or living in a [place] health care facility (including now)? No 05/05/2025 [facility] Utilities Answer Date Recorded In the [...] drink first t chaparro in the morning (EYE-POPCORN ATTENDANT) to steady your nerves or to [...] file Travel History Travel Start Travel End [place] 04/26/2025 05/03/2025 Last Filed Vital Signs Vital Sign Reading [...] Mass Index 31.58 05/10/2025 10:46 AM EDT Plan of Treatment Upcoming Encounters Date Type Department Care Team (Late st Contact Info) Description 05/24/2025 11:00 AM EDT Office Visit [facility] [address] [place] [address] Latisha Epps APRN [address] [place] [address] 06/29/2025 7:40 AM EDT Appointment [facility] [address] [place] [address] 06/29/2025 10:15 AM EDT Office Visit [facility] [address] [place] [address] Ken Horton MD [address] [facility] [address] [place] [address] 07/05/2025 9:45 AM EST Office Visit [facility] [address] [facility]nd [place] [address] Desire Ojeda MD [address] [facility] [address] [place] [address] Health Maintenance Due Date Last Done Comments [facility]-Hepatitis C Screening 1955 [facility]-Infant/Child/Adol SDOH Screenings 1955 Diabetes: Dental Exam 1965 [facility]-DTaP,Tdap,and Td Vaccines (1 - Tdap) 1974 [facility]-Pneumococcal Vaccine: 50+ Years (1 of 2 - PCV) 1974 [facility]-Zoster Vaccines (1 of 2) 1974 CT Colonography 01/21/2000 FIT-DNA 01/21/2000 FIT 01/21/2000 FOBT 01/21/2000 Sigmoidoscopy 01/21/2000 [facility]-RSV Vaccine: 60+ Years or (1 - Risk 60-74 years 1-dose series) 2015 SJG-TOUCO-10 Vaccine (3 - Pfizer risk series) 03/29/2021 03/01/2021, 02/08/2021 [facility]-Bone Density Scan 04/18/2023 04/18/2021 [facility]-Medicare Annual Wellness (AWV) 04/29/2025 04/29/2024 [facility]-Influenza Vaccine (#1) 2025 08/16/2022, [facility]- SDOH Screenings 11/02/2025 [facility]-Adult SDOH Screenings 11/02/2025 05/05/2025 [facility]-Diabetes: Hemoglobin A1C 11/07/202505/2025, 04/29/2024, 03/26/2023, Additional history exists [facility]-Breast Cancer Screening 05/04/[address] 10/2023, 04/18/2021, 09/25/2018 [facility]-Depression Screening 05/10/2026 05/10/2025, 05/2025 Colonoscopy 10/24/2032 10/24/2022, 10/02, 1955 [facility]-Colorectal Cancer Screening 10/24/2032 [facility]-Obesity Intervention Completed 025, 01/18/2025, 07/20/2024, Additional history exists HPV Vaccines Aged Out No longer eligi ble based on patient's age to complete this topic [facility]-HIB Vaccines Aged Out No longer e ligible based on patient's age to complete this topic [facility]-Hepatitis A Vaccines Aged Out No longer eligible based on patient's age to complete this topic [facility]-IPV Vaccines Aged Out No longer e ligible based on patient's age to complete this topic [facility]-Rotavirus Vaccines Aged Out No lo nger eligible based on patient's age to complete this topic Procedures Procedure Name Priority Date/Time Associated Diagnosis Comments LIPID PROFILE, PLASMA Routine 05/10/2025 11:35 AM EDT Essential hypertension CBC WITH AUTO DIFFERENTIAL Routine 05/10/2025 11:35 AM EDT Essential hypertension COMPREHENSIVE METABOLIC PANEL, PLASMA Routine 05/10/2025 11:35 AM EDT Essential hypertension HEMOGLOBIN A1C Routine 05/10/2025 11:35 AM EDT Type 2 diabetes mellitus without complication, without long-term current use of insulin TSH Routine 05/10/2025 11:35 AM EDT Type 2 diabetes mellitus without complication, without long-term current use of insulin MAMMOGRAPHY BREAST SCREENING TOMOSYNTHESIS BILATERAL 05/04/2024 8:57 AM EDT COLONOSCOPY EXTERNAL RESULT 10/24/2022 DEXA BONE DENSITY 04/18/2021 2:1 8 PM EDT from Last 3 Months or Most Recently Relevant to Health Maintenance Results * (ABNORMAL) CBC and Differential (05/10/2025 11:35 AM EDT) WBC Count 7.37 3.70 - 10.30 10*3/uL LAB HEMATOLOGY METHOD 05/10/2025 7:12 PM EDT [facility] RBC Count 4.41 3.90 - 5.20 10*6/uL LAB HEMATOLOGY METHOD 05/10/2025 7:12 PM EDT [facility] HGB 12.2 11.2 - 15.7 g/dL LAB HEMATOLOGY METHOD 05/10/2025 7:12 PM EDT [facility] HCT 39.3 34.0 - 45.0 % LAB HEMATOLOGY METHOD 05/10/2025 7:12 PM EDT [facility] Platelet Count 477(H) 155 - 369 10*3/uL LAB HEMATOLOGY METHOD 05/10/2025 7:12 PM EDT [facility] MCV 89 79 - 98 fL LAB HEMATOLOGY METHOD 05/10/2025 7:12 PM EDT [facility] MCH 27.7 26.0 - 32.0 pg LAB HEMATOLOGY METHOD 05/10/2025 7:12 PM EDT [facility] MCHC 31.0 30.7 - 35.5 g/dL LAB HEMATOLOGY METHOD 05/10/2025 7:12 PM EDT [facility] RDW 14.1 11.5 - 14.5 % LAB HEMATOLOGY METHOD 05/10/2025 7:12 PM EDT [facility] MPV 8.8 8.8 - 12.5 fL LAB HEMATOLOGY METHOD 05/10/2025 7:12 PM EDT [facility] nRBC 0.0 <=0.0 per 100 WBCs LAB HEMATOLOGY METHOD 05/10/2025 7:12 PM EDT [facility] Differential Type Automated LAB HEMATOLOGY METHOD 05/10/2025 7:12 PM EDT [facility] Neutrophils % 73 % LAB HEMATOLOGY METHOD 05/10/2025 7:12 PM EDT [facility] Lymphocytes % 14 % LAB HEMATOLOGY METHOD 05/10/2025 7:12 PM EDT [facility] Monocytes % 9 % LAB HEMATOLOGY METHOD 05/10/2025 7:12 PM EDT [facility] Eosinophils % 1 % LAB HEMATOLOGY METHOD 05/10/2025 7:12 PM EDT [facility] Basophils % 0 % LAB HEMATOLOGY METHOD 05/10/2025 7:12 PM EDT [facility] Immature Granulocytes % 3 % LAB HEMATOLOGY METHOD 05/10/2025 7:12 PM EDT [facility] Neutrophils Absolute 5.44 1.60 - 6.10 10*3/uL LAB HEMATOLOGY METHOD 05/10/2025 7:12 PM EDT [facility] Lymphocytes Absolute 1.06(L) 1.20 - 3.90 10*3/uL LAB HEMATOLOGY METHOD 05/10/2025 7:12 PM EDT [facility] Monocytes Absolute 0.63 0.30 - 0.90 10*3/uL LAB HEMATOLOGY METHOD 05/10/2025 7:12 PM EDT [facility] Eosinophils Absolute 0.04 0.00 - 0.50 10*3/uL LAB HEMATOLOGY METHOD 05/10/2025 7:12 PM EDT [facility] Basophils Absolute 0.01 0.00 - 0.10 10*3/uL LAB HEMATOLOGY METHOD 05/10/2025 7:12 PM EDT [facility] Immature Granulocytes Absolute 0.19(H) 0.00 - 0.06 10*3/uL LAB HEMATOLOGY METHOD 05/10/2025 7:12 PM EDT [facility] Blood Venous blood specimen / Unknown Venipuncture / Unknown 05/10/2025 11:35 AM EDT 05/10/2025 11:35 AM EDT Narrative [facility] - 05/10/2025 7:12 PM EDT Therapeutic decision making should be based on absolute values, rather than percentages. Latisha Alfredito Epps CARPET YARN WINDER OPERATOR LAB BLOOD ORDERABLES Final Result Performing Organization Address [facility]/ZIP Co de Phone Number [facility] [address] [place] [address] * Thyroid Stimulating Hormone, Plasma (05/10/2025 11:35 AM EDT) Thyroid Stimulating Hormone, Plasma 0.82 0.40 - 4.20 uIU/mL 05/10/2025 7:35 PM EDT [facility] Blood Venous blood specimen / Unknown Venipuncture / Unknown 05/10/2025 11:35 AM EDT 05/10/2025 11:35 AM EDT Latisha Jaramilloford CARPET YARN WINDER OPERATOR LAB BLOOD ORDERABLES Final Result Performing Organization Address City/[facility] Co de Phone Number [facility] [address] [place] [address] * (ABNORMAL) Hemoglobin A1c (05/10/2025 11:35 AM EDT) Hemoglobin A1c 6.5(H) <5.7 % 05/10/2025 8:52 PM EDT [facility] Blood Venous blood specimen / Unknown Venipuncture / Unknown 05/10/2025 11:35 AM EDT 05/10/2025 11:35 AM EDT Narrative [facility] - 05/10/2025 8:52 PM EDT HA1C Interpretive Data: Diagnosis of Diabetes: Diabetic > or = 6.5% Pre-diabetic 5.7 to 6.4% Non-diabetic < or = 5.6% Glycemic Targets for Type I and Type II Diabetics: Non- Adults <7.0% Adults <6.0% Children and Adolescents <7.5% Source: [place] [employer]. Standards of medical care in diabetes,2017. Diabetes Care.2017:40 (suppl 1):S1-S135. Latisha Epps CARPET YARN WINDER OPERATOR LAB BLOOD ORDERABLES Final Result [facility] [address] [place] [address] * (ABNORMAL) Lipid Profile, Plasma (05/10/2025 11:35 AM EDT) Cholesterol, Plasma 155 <200 mg/dL 05/10/2025 7:35 PM EDT [facility] Comment: Cholesterol Reference Range (age >17 years): Desirable <200 mg/dL Borderline 200 to 239 mg/dL Undesirable >239 mg/dL HDL 46(L) >=50 mg/dL 05/10/2025 7:35 PM EDT [facility] Comment: HDL Cholesterol Reference Ranges (age >17 years): Female, acceptable > or = 50 mg/dL Male, acceptable > or = 40 mg/dL Triglycerides, Plasma 145 <150 mg/dL 05/10/2025 7:35 PM EDT [facility] Comment: Triglyceride Reference Range (age >17 years): Desirable: <150 mg/dL Borderline high: 150 to 199 mg/dL High: 200 to 499 mg/dL Very high: >499 mg/dL Increased risk of pancreatitis: >1000 mg/dL Cholesterol/HDL Ratio 3 05/10/2025 7:35 PM EDT [facility] LDL, Calculated 84 <100 mg/dL 7:35 PM EDT [facility] Comment: LDL Cholesterol Reference Range [...] 12 hours? Yes 05/10/2025 7:35 PM EDT [facility] Blood Venous blood specimen / Unknown Venipuncture / Unknown 05/10/2025 11:35 AM EDT 05/10/2025 11:35 AM EDT Latisha Epps CARPET YARN WINDER OPERATOR LAB BLOOD ORDERABLES Final Result [facility] [address] [place] [address] * (ABNORMAL) Comprehensive Metabolic Panel, Plasma (05/10/2025 11:35 AM EDT) Glucose, Plasma 98 74 - 99 mg/dL 05/10/2025 7:35 PM EDT [facility] BUN, Plasma 9 8 - 23 mg/dL 05/10/2025 7:35 PM EDT [facility] Creatinine, Plasma 0.75 0.60 - 1.10 mg/dL 05/10/2025 7:35 PM EDT [facility] BUN/Creatinine Ratio 12 05/10/2025 7:35 PM EDT [facility] Sodium, Plasma 138 136 - 145 mmol/L 05/10/2025 7:35 PM EDT [facility] Potassium, Plasma 4.3 3.6 - 4.9 mmol/L 05/10/2025 7:35 PM EDT [facility] Chloride, Plasma 103 97 - 107 mmol/L 05/10/2025 7:35 PM EDT [facility] CO2, Plasma 23 22 - 29 mmol/L 05/10/2025 7:35 PM EDT [facility] Anion Gap 12 6 - 16 mmol/L 05/10/2025 7:35 PM EDT [facility] Total Calcium, Plasma 10.3(H) 8.9 - 10.2 mg/dL 05/10/2025 7:35 PM EDT [facility] Total Protein 7.3 6.3 - 7.9 g/dL 05/10/2025 7:35 PM EDT [facility] Albumin, Plasma 4.2 3.5 - 5.2 g/dL 05/10/2025 7:35 PM EDT [facility] AST, Plasma 19 10 - 35 U/L 05/10/2025 7:35 PM EDT [facility] ALT, Plasma 13 10 - 35 U/L 05/10/2025 7:35 PM EDT [facility] Alkaline Phosphatase, Plasma 84 46 - 142 U/L 05/10/2025 7:35 PM EDT [facility] Total Bilirubin, Plasma 0.4 0.2 - 1.1 mg/dL 05/10/2025 7:35 PM EDT [facility] eGFRcr 85.8 mL/min/1.7 3m*2 05/10/2025 7:35 PM EDT [facility] Comment:Reported eGFRcr in m L/min/1.73m2 is based the CKD-EPI 2020 equation that does not use a race coefficient. Blood Venous blood specimen / Unknown Venipuncture / Unknown 05/10/2025 11:35 AM EDT 05/10/2025 11:35 AM EDT Latisha Epps CARPET YARN WINDER OPERATOR LAB BLOOD ORDERABLES Final Result Performing Organization Address City/State/[facility] Co de Phone Number [facility] [address] [place] [address] * Mammography Breast Screening Tomosynthesis Bilateral (05/04/2024 8:57 AM EDT) Anatomical Region Laterality Modality Breast Bilateral Mammography 05/04/2024 8:57 AM EDT Narrative 05/04/2024 10:06 AM EDT [address] [address] Name: ROBERTO KRUEGER Exam Date: 05/04/2024 : 1955 Age 69 years Gender: F Physician: LATISHA EPPS Facility: [facility] Facility HSV: Outpatient Exam: JOSE SCRN MAMMO W/CAD BILAT Exam: 3-D screening mammography including tomosynthesis and CAD (Computer Assisted Detection). Clinical indication: Asymptomatic screening exam. Comparison: Exams to 2020 TECHNIQUE: Routine bilateral 2D screening mammogram with CC and MLO views obtained. 3-D tomosynthesis and Computer assisted detection were utilized for this exam. BREAST DENSITY:Scattered areas of fibroglandular density. FINDINGS: Central inner posterior right breast focal asymmetry. No suspicious masses, calcifications, or distortion in the left breast. IMPRESSION: Central inner posterior right breast focal asymmetry Recommendation: Diagnostic mammography with possible ultrasound recommended The results of this report will be communicated to the patient by letter in layman's terms. ACR BI-RADS: 0-INCOMPLETE: NEEDS ADDITIONAL IMAGING EVALUATION Mammography does not detect approximately 10-15% of [...] facility receive pathologic results for follow-up correlation. Electronically signed by:Arnulfo Fiore MD05/04/2024 10:03 AM EDT Dictated By: Arnulfo Fiore Transcribed By: Transcribed On: 05/04/2024 9:45 AM Electronically signed by: Arnulfo Fiore 05/04/2024 Thank you for referring ROBERTO KRUEGER to [facility]. Legally authenticated by ANGELITA ZAMORANO 2024-05-04 09:45:26 Procedure Note Provider, [facility] 05/04/2024 [place] [id number] Name: ORBERTO KRUEGER Exam Date: 05/04/2024 : 1955 Age 69 years Gender: F Physician: LTAISHA EPPS Facility: [facility] Facility HSV: Outpatient Exam: JOSE SCRN MAMMO W/CAD BILAT Exam: 3-D screening mammography including tomosynthesis and CAD(Computer Assisted Detection). Clinical indication: Asymptomatic screening exam. Comparison: Exams to 2020 TECHNIQUE: Routine bilateral 2D screening mammogram with CC and MLOviews obtained. 3-D tomosynthesis and Computer assisted detection were utilizedfor this exam. BREAST DENSITY:Scattered areas of fibroglandular density. FINDINGS: Central inner posterior right breast focal asymmetry. No suspicious masses, calcifications, or distortion in the left breast. IMPRESSION: Central inner posterior right breast focal asymmetry Recommendation: Diagnostic mammography with possible ultrasound recommended The results of this report will be communicated to the patient by letterin layman's terms. ACR BI-RADS: 0-INCOMPLETE: NEEDS ADDITIONAL IMAGING EVALUATION Mammography does not detect approximately 10-15% of [...] this facility receive pathologicresults for follow-up correlation. Electronically signed by:Arnulfo Fiore MD05/04/2024 10:03 AM EDT RP Dictated By: Arnulfo Fiore Transcribed By: Transcribed On: 05/04/2024 9:45 AM Electronically signed by: Arnulfo Fiore 05/04/2024 Thank you for referring ROBERTO KRUEGER to [facility]. Legally authenticated by ANGELITA ZAMORANO 2024-05-04 09:45:26 us Latisha Epps CARPET YARN WINDER OPERATOR IMG BI PROCEDURES Final Res ult * COLONOSCOPY EXTERNAL RESULT (10/24/2022) Anatomical Region Laterality Modality Endoscopy Narrative 10/24/2022 Ordered by an unspecified provider. us External Provider GI PROCEDURE ORDERABLES Final Result * Dexa Bone Density (04/18/2021 2:18 PM EDT) Anatomical Region Laterality Modality L-spine Radiographic Marley ging 04/18/2021 2:18 PM EDT Narrative 04/18/2021 7:10 [place] [id number] Name: ROBERTO KRUEGER Exam Date: 04/18/2021 : 1955 Age 66 Gender: F Physician: LATISHA EPPS Facility: [facility] Facility HSV: Outpatient Exam: DEXA BONE DENSITY AX BONE DENSITY SCAN HISTORY: Postmenopausal female. COMPARISON: None FINDINGS: Dual femur total: 0.842 g/cm2 with corresponding T-score of -1.3. This is classified as osteopenic. Lumbar spine, L1-L4: 1.241 g/cm2 with corresponding T-score of 0.4. This is classified as normal. CONCLUSION: Osteopenia with moderate risk of fracture. Dictated By: Nina Reno Transcribed By: Nina Reno Transcribed On: 04/18/2021 7:01 PM Electronically signed by: Nina Reno 04/18/2021 Thank you for referring KRUEGER, ROBERTO to [facility]. Legally authenticated by POPE NINA Schuster 2021-04-18 19:01:14 Procedure Note Provider, [facility] - 04/18/2021 [place] [id number] Name: ROBERTO KRUEGER Exam Date: 04/18/2021 : 1955 Age 66 Gender: F Physician: LATISHA EPPS Facility: [facility] Facility HSV: Outpatient Exam: DEXA BONE DENSITY AX BONE DENSITY SCAN HISTORY: Postmenopausal female. COMPARISON: None FINDINGS: Dual femur total: 0.842 g/cm2 with corresponding T-score of -1.3. Thisis classified as osteopenic. Lumbar spine, L1-L4: 1.241 g/cm2 with corresponding T-score of 0.4. Thisis classified as normal. CONCLUSION: Osteopenia with moderate risk of fracture. Dictated By: Nina Reno Transcribed By: Nina Reno Transcribed On: 04/18/2021 7:01 PM Electronically signed by: Nina Reno 04/18/2021 Thank you for referring KRUEGER, ROBERTO to [facility]. 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 Yes Care Teams Customer Success Representative Relationship Specialty Start Date End Date Latisha Epps APRN [address] [place] [address] PCP - General 01/12/21 Desire Ojeda MD [address] [place] [address] Surgeon Cardiothoracic Surgery 03/24/23 Jad Smith MD [address] [facility] [address] [place], [place] [id number] Referring Physician Hematology and Oncology 03/24/23
--- OUTSIDE RECORDS SUMMARY | 2025-05-20 13:42 | XMS_ITS | Encounter Summary ---
Author Organization [facility] Address [address] [place] [address] Care Team Providers Care Plastic Surgery Coordinator Name Role Phone Latisha Epps APRN Primary Care Provider [phone] Desire Ojeda MD Unavailable [phone] Jad Smith MD Unavailable [phone] Encounter Details Date Type Department Care Team (Latest Contact Info) Description 05/10/2025 Travel 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 Tobacco Use Types Packs/Day Years [...] week 04/23/2024 How often do you attend [facility] or mu-ism services? More than 4 times per year 04/23/2024 Do you belong to any clubs o r organizations such as mormon groups, unions, fraternal or athletic groups, or [...] Recorded Patient Health Questionnaire-2 Score 0 05/10/2025 [facility] - Occupational Stress Questionnaire Answer Date Recorded [...] any time in the past 12 m [facility], were you homeless or living in a fpc (including now)? No 05/05/2025 [facility] Utilities Answer Date Recorded In the [...] drink first t chaparro in the morning (EYE-LANDFILL GAS TECHNICIAN) to steady your nerves or to get [...] file Travel History Travel Start Travel End [place] 04/26/2025 05/03/2025 documented as of this encounter Functional Status * Over the past 2 weeks, how often have you been bothered by any of the following problems? Question Answer Date of Assessment Author Little interest or pleasure in doing things Not at all 05/10/2025 10:57 AM EDT Milady Salinas Feeling down, depressed, or hopeless Not at all 05/10/2025 10:57 AM Milady Cotton Patient Health Questionnaire -2 Score 0 05/10/2025 [...] (Past 1 Month) No 025 10:49 AM EDT Milady Salinas 2. Non-Specific Active Suici coni Thoughts (Past 1 Month) No 05/10/2025 10:49 AM EDT Chanel Salinas 6. Suicidal Behavior (Lifetime) No 10:49 AM EDT Milady Salinas documented as of this encounter Plan of Treatment Upcoming Encounters Date Type Department Care Team (Late st Contact Info) Description 05/24/2025 11:00 AM EDT Office Visit [facility] [address] [place] [address] Latisha Epps, ROBOTICS TECHNICIAN [address] [place] [address] 06/29/2025 7:40 AM EDT Appointment [facility] [address] [place] [address] 06/29/2025 10:15 AM EDT Office Visit [facility] [address] [place] [address] Ken Horton MD [address] [place] [address] 07/05/2025 9:45 AM EST Office Visit [facility] [address] [facility], 2nd [place] [address] Desire Ojeda MD [address] [place] [address] documented as of this encounter [...] documented as of this encounter Care Teams Plastic Surgery Coordinator Relationship Specialty Start Date End Date Latisha Epps APRN [address] [place] [address] PCP - General 01/12/21 Desire Ojeda MD [address] [facility] [address] [place] [address] Surgeon Cardiothoracic Surgery 03/24/23 Jad Smith MD 1140 [facility] [address] [place] [address] Referring Physician Hematology and Oncology 03/24/23 documented as of this encounter
--- OUTSIDE RECORDS SUMMARY | 2025-05-20 13:42 | XMS_ITS | Encounter Summary ---
Author Organization [facility] Address [address] [place] [address] Care Team Providers Care Cooler Servicer Name Role Phone Latisha Epps APRN Primary Care Provider [phone] Desire Ojeda MD Unavailable [phone] Jad Smith MD Unavailable [phone] Encounter Details Date Type Department Care Team (Latest Contact Info) Description 05/05/2025 Travel 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 Tobacco Use Types Packs/Day [...] week 04/23/2024 How often do you attend [facility] or anabaptism services? More than 4 times per year 04/23/2024 Do you belong to any clubs o r organizations such as restoration groups, unions, fraternal or athletic groups, or [...] Recorded Patient Health Questionnaire-2 Score 0 04/29/2024 [facility] - Occupational Stress Questionnaire Answer Date Recorded [...] Recorded Patient Health Questionnaire-9 Score 10 08/16/2022 Humiliation, Afraid, Rape, and Kick questionnair e [...] by your partner or ex-partner? No 05/05/2025 Hunger Vital Sign Answer Date Recorded Within [...] any time in the past 12 m [facility], were you homeless or living in a mcfp (including now)? No 05/05/2025 [facility] Utilities Answer Date Recorded In the past 12 months has e [employer], gas, oil, or water company threatened to [...] drink first t chaparro in the morning (EYE-RECOVERY AUDITOR) to steady your nerves or to get [...] Description 05/24/2025 11:00 AM EDT Office Visit [facility] [place] [address] [address] Latisha Epps, SURGICAL SALES REPRESENTATIVE [address] [place] [address] 06/29/2025 7:40 AM EDT Appointment [facility] [address] [place] [address] 06/29/2025 10:15 AM EDT Office Visit [facility] [address] [place] [address] Ken Horton MD [address] [place] [address] 07/05/2025 9:45 AM EST Office Visit [facility] 800 [facility], 2nd [place] [address] Desire Ojeda MD [address] [place] [address] documented as of this encounter [...] documented as of this encounter Care Teams Cooler Servicer Relationship Specialty Start Date End Date Latisha Epps APRN [address] [place] [phone] PCP - General 01/12/21 Desire Ojeda MD [address] [place] [address] Surgeon Cardiothoracic Surgery 03/24/23 Jad Smith MD [address] [place], [place] [phone] Referring Physician Hematology and Oncology 03/24/23 documented as of this encounter
--- OUTSIDE RECORDS SUMMARY | 2025-05-20 13:42 | XMS_ITS | Encounter Summary ---
Author Organization Healthcare Address [address] [place] [address] Care Team Providers Care Ceiling Insulation Blower Name Role Phone Dawson Julio APRN Primary Care Provider [phone] Desire Ojeda MD Unavailable [phone] Jad Smith MD Unavailable [phone] Suzanne Wheeler LPN Unavailable Unavailab Beba Ritchie LPN Unavailable Unavailabl e Encounter Details Date Type Department Care Team (Late st Contact Info) Description 05/19/2024 Outside Procedure External Location [address] [place] [address] Dawson Julio APRN [address] [place] [address] 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 Tobacco Use Types [...] often do you attend chur ch or amish services? More than 4 times per year 04/23/2024 Do you belong to any clubs o r organizations such as mandaeism groups, unions, fraternal or athletic groups, or [...] Recorded Patient Health Questionnaire-2 Score 0 04/29/2024 [facility]ational Stress Questionnaire [...] drink first t chaparro in the morning (EYE-RETAIL PERFORMANCE SPECIALIST) to steady your nerves or to [...] AM EDT Office Visit [facility] [address] [place] [address] Dawson Julio APRN [address] [place] [address] 06/29/2025 7:40 AM EDT Appointment [facility] [address] [place] [address] 06/29/2025 10:15 AM EDT Office Visit [facility] [address] [place] [address] Ken Horton MD [address] [place] [address] 07/05/2025 9:45 AM EST Office Visit [facility] [address] [facility], 2nd [place] [address] Desire Ojeda MD [address] [place] [address] documented as of this encounter Procedures Procedure Name Priority Date/Time Associated Diagnosis Comments US BREAST LIMITED RIGHT 05/19/2024 4:10 PM EDT documented in this encounter Results * US Breast Limited Right (05/19/2024 4:10 PM EDT) Anatomical Region Laterality Modality Breast Right Ultrasound 05/19/2024 4:10 PM EDT Narrative 05/19/2024 5:21 PM EDT [address] [place] [address] Name: IRENA KRUEGER Exam Date: 05/19/2024 : 1955 Age 69 years Gender: F Physician: DAWSON JULIO: [facility] Facility HSV: Outpatient Exam: US BREAST LTD RT EXAMINATION: MAMMO BREAST DIAGNOSTIC TOMOSYNTHESIS RIGHT, US BREAST LIMITED RIGHT CLINICAL HISTORY: The patient, a 69-year-old female, was presented for a requested diagnostic assessment of a subcentimeter mammographic asymmetry posterior depth of the right inferomedial breast Technique: 3-D right ML mammogram and two-view 3-D cone compression views of the posterior depth of the right inferomedial breast were performed/submitted in addition to targeted sonogram of this area The Computer Aided Detection was used to aid in interpretation. Low dose full field Digital Breast Tomosynthesis examination was performed with 2-D and 3-D acquisitions in the CC and MLO projections. Comparison: Comparison is made with prior examinations dating back to 2019. Findings: Right digital mammogram: Breast Composition: The breasts are heterogeneously dense, which may obscure small masses. On today's targeted right breast imaging, there is a persistent subcentimeter nodular mammographic asymmetry seen in the posterior depth of the right inferomedial breast. Targeted sonogram of this area was performed Impression: Persistent subcentimeter mammographic asymmetry posterior depth of the right inferomedial breast. Short-term follow-up is requested Refer to targeted sonogram of this area TARGETED SONOGRAM OF THE RIGHT INFEROMEDIAL BREAST Technique: Radial/antiradial grayscale and power color Doppler sonographic imaging of the posterior depth of the right inferomedial breast was performed Findings: Breast tissue echotexture: Heterogeneous Targeted sonogram of the posterior depth of the right inferomedial breast: At targeted sonography of this area at the 3:00 right breast, 9 cm from the nipple, there is a 5 x 5 mm oval well-circumscribed oval hypoechoic mass with linear internal echoes, benign etiology as septated cyst is favored. This may well correspond to the mammographic asymmetry. At the 4:00 right breast 8 cm from the nipple is a possible 5 mm hypoechoic nodule. Short-term follow-up is requested There are no other sonographically significant findings on submitted images Impression: There is a 5 x 5 mm oval well-circumscribed hypoechoic nodule with linear internal echoes seen at the 3:00 right breast, 9 cm from the nipple, which appears to correspond to the persistent right mammographic asymmetry. Benign etiology as septated cyst is favored. Short-term follow-up is requested. At the 4:00 right breast, 8 cm from the nipple, is a possible 5 mm hypoechoic nodule. Short-term follow-up is requested Legally authenticated by MATTY CRUMP 2024-05-19 16:51:17 BI-RADS: 3-probably benign [id number] follow-up Recommendation: Six-month follow-up right diagnostic mammogram and targeted 4:00 right breast sonogram, 8 to 9 cm from the nipple is requested to reevaluate the 2 described hypoechoic nodules in this area Attention Physician: A letter has been sent to your patient regarding the results of this exam Electronically signed by:Ivonne Barbour MD05/19/2024 05:17 PM EDT RP Dictated By: Ivonne Barbour Transcribed By: Transcribed On: 05/19/2024 4:51 PM Electronically signed by: Ivonne Barbour 05/19/2024 Thank you for referring IRENA KRUEGER to [facility]. Legally authenticated by MATTY CRUMP 2024-05-19 16:51:17 Procedure Note Provider, [facility] - 05/19/2024 [place] [address] Name: IRENA KRUEGER Exam Date: 05/19/2024 : 1955 Age 69 years Gender: F Physician: DAWSON JULIO Facility: [facility] Facility HSV: Outpatient Exam: US BREAST LTD RT EXAMINATION: MAMMO BREAST DIAGNOSTIC TOMOSYNTHESIS RIGHT, US BREASTLIMITED RIGHT CLINICAL HISTORY: The patient, a 69-year-old female, was presented for a requested diagnostic assessment of a subcentimeter mammographicasymmetry posterior depth of the right inferomedial breast Technique: 3-D right ML mammogram and two-view 3-D cone compression viewsof the posterior depth of the right inferomedial breast wereperformed/submitted in addition to targeted sonogram of this area The Computer Aided Detectionwas used to aid in interpretation. Low dose full field Digital Breast Tomosynthesis examination was performed with 2-D and 3-D acquisitions inthe CC and MLO projections. Comparison: Comparison is made with prior examinations dating back qz2094. Findings: Right digital mammogram: Breast Composition: The breasts are heterogeneously dense, which may obscure small masses. On today's targeted right breast imaging, there is a persistentsubcentimeter nodular mammographic asymmetry seen in the posterior depth of the right inferomedial breast. Targeted sonogram of this area was performed Impression: Persistent subcentimeter mammographic asymmetry posterior depth of theright inferomedial breast. Short-term follow-up is requested Refer to targeted sonogram of this area TARGETED SONOGRAM OF THE RIGHT INFEROMEDIAL BREAST Technique: Radial/antiradial grayscale and power color Dopplersonographic imaging of the posterior depth of the right inferomedial breast wasperformed Findings: Breast tissue echotexture: Heterogeneous Targeted sonogram of the posterior depth of the right inferomedialbreast: At targeted sonography of this area at the 3:00 right breast, 9 cm fromthe nipple, there is a 5 x 5 mm oval well-circumscribed oval hypoechoic masswith linear internal echoes, benign etiology as septated cyst is favored. Thismay well correspond to the mammographic asymmetry. At the 4:00 right breast 8 cm from the nipple is a possible 5 mmhypoechoic nodule. Short-term follow-up is requested There are no other sonographically significant findings on submittedimages Impression: There is a 5 x 5 mm oval well-circumscribed hypoechoic nodule withlinear internal echoes seen at the 3:00 right breast, 9 cm from the nipple,which appears to correspond to the persistent right mammographic asymmetry.Benign etiology as septated cyst is favored. Short-term follow-up is requested. At the 4:00 right breast, 8 cm from the nipple, is a possible 5 mmhypoechoic nodule. Short-term follow-up is requested Legally authenticated by MATTY CRUMP 2024-05-19 16:51:17 BI-RADS: 3-probably benign [id number] follow-up Recommendation: Six-month follow-up right diagnostic mammogram and targeted 4:00 rightbreast sonogram, 8 to 9 cm from the nipple is requested to reevaluate the 2described hypoechoic nodules in this area Attention Physician: A letter has been sent to your patient regardingthe results of this exam Electronically signed by:Ivonne Barbour MD05/19/2024 05:17 PM EDT RP Dictated By: Ivonne Barbour Transcribed By: Transcribed On: 05/19/2024 4:51 PM Electronically signed by: Ivonne Barbour 05/19/2024 Thank you for referring IRENA KRUEGER to [facility]. Legally authenticated by MATTY CRUMP 2024-05-19 16:51:17 us Dawson Julio APRN IMG BI PROCEDURES Final Res ult documented in this encounter Visit Diagnoses Not on filedocumented in this encounter Additional Health Concerns Assessment Noted Time PHQ-9 Depression Total Score: 10 022 11:18 AM EST A fall risk assessment has been complete d for the patient 04/29/2024 1:06 PM EDT A Body Mass Index follow-up plan has been documented for the patient 04/29/2024 1:48 PM EDT documented as of this encounter Care Teams Ceiling Insulation Blower Relationship Specialty Start Date End Date Dawson Julio APRN [address] [place] [address] PCP - General 01/12/21 Desire Ojeda MD [address] [place] [address] Surgeon Cardiothoracic Surgery 03/24/23 Jad Smith MD [address] [facility] [address] [place] [address] Referring Physician Hematology and Oncology 03/24/23 Suzanne Wheeler LPN VALUE-BASED TRANSFORMATION PROGRAM Licensed Practical Nurse 04/19/24 05/25/24 Beba Mota LPN VALUE-BASED TRANSFORMATION PROGRAM Licensed Practical Nurse 04/28/25 05/03/25 documented as of this encounter
--- OUTSIDE RECORDS SUMMARY | 2025-05-20 13:42 | XMS_ITS | Encounter Summary ---
Author Organization [facility] Address [address] [place] [address] Care Team Providers Care Peoplesoft Administrator Name Role Phone Latisha Epps APRN Primary Care Provider [phone] Desire Ojeda MD Unavailable [phone] Jad Smith MD Unavailable [phone] Encounter Details Date Type Department Care Team (Late st Contact Info) Description 05/11/2025 Results Follow-Up [facility] [address] [place] [address] Latisha Epps APRN [address] [place] [address] 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 Tobacco Use Types [...] often do you attend chur ch or adventist services? More than 4 times per year 04/23/2024 Do you belong to any clubs o r organizations such as caodaism groups, unions, fraternal or athletic groups, or [...] Recorded Patient Health Questionnaire-2 Score 0 05/10/2025 [facility] Answer Date [...] any time in the past 12 m [facility], were you homeless or living in a halfway (including now)? No 05/05/2025 [facility] [...] drink first t chaparro in the morning (EYE-DIRECTOR GEOTHERMAL OPERATIONS) to steady your nerves or to get [...] Description 05/24/2025 11:00 AM EDT Office Visit [facility] [address] [place] [address] Latisha Epps, WOOD SHINGLE ROOFER [address] [place] [address] 06/29/2025 7:40 AM EDT Appointment [facility] [address] [place] [address] 06/29/2025 10:15 AM EDT Office Visit [facility] [address] [place] [address] Ken Horton MD [address] [place] [address] 07/05/2025 9:45 AM EST Office Visit [facility] [address] [facility], 2nd [place] [address] Desire Ojeda MD [address] [place] [address] documented as of this encounter [...] documented as of this encounter Care Teams Peoplesoft Administrator Relationship Specialty Start Date End Date Latisha Epps, WOOD SHINGLE ROOFER [address] [place] [address] PCP - General 01/12/21 Desire Ojeda MD [address] [facility] [address] [place] [address] Surgeon Cardiothoracic Surgery 03/24/23 Jad Smith MD [address] [facility] [address] [place] [address] Referring Physician Hematology and Oncology 03/24/23 documented as of this encounter
--- OUTSIDE RECORDS SUMMARY | 2025-05-20 13:42 | XMS_ITS | Encounter Summary ---
Author Organization Healthcare Address [address] [place] [address] Care Team Providers Care Crystal Syrup Maker Name Role Phone Latisha Epps APRN Primary Care Provider [phone] Desire Ojeda MD Unavailable [phone] Jad Smith MD Unavailable [phone] Suzanne Wheeler SALES REPRESENTATIVE TRAINEE Unavailable Unavailab Beba Ritchie SALES REPRESENTATIVE TRAINEE Unavailable Unavailabl e Encounter Details Date Type Department Care Team (Late st Contact Info) Description 03/17/2023 Outside Procedure External Location [address] [place] [address] Jad Smith MD 1140 [facility] [address] [place] [address] 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 Tobacco Use Types Packs/Day Years [...] file Travel History Travel Start Travel End [place] 04/26/2025 05/03/2025 documented as of this encounter Plan of Treatment Upcoming Encounters Date Type Department Care Team (Late st Contact Info) Description 05/24/2025 11:00 AM EDT Office Visit [facility] [address] [place] [address] Latisha Epps APRN [address] [place] [address] 06/29/2025 7:40 AM EDT Appointment [facility] [address] [place] [address] 06/29/2025 10:15 AM EDT Office Visit [facility] [address] [place] [address] Ken Horton MD [address] [place] [address] 07/05/2025 9:45 AM EST Office Visit [facility] 800 [facility], 2nd [place] [address] Desire Ojeda MD [address] [place] [address] documented as of this encounter Procedures Procedure Name Priority Date/Time Associated Diagnosis Comments CT GUIDED BIOPSY LUNG LEFT 03/17/2023 8:00 AM EDT documented in this encounter Results * CT Guided Biopsy Lung Left (03/17/2023 8:00 AM EDT) Anatomical Region Laterality Modality Lung Left Computed Tomogra phy 03/17/2023 8:00 AM EDT Narrative 03/17/2023 10:10 AM EDT [address] [place] [address] Name: IRENA KRUEGER Exam Date: 03/17/2023 : 1955 Age 68 Gender: F Physician: JAD SMITH Facility: [facility] Facility HSV: Outpatient Exam: CT BIOPSY LUNG CT LUNG BIOPSY HISTORY: Right-sided pulmonary mass. PHYSICIAN RETAIL STORE CLERK: Precious Kong ATTENDING PHYSICIAN: Dr. Johnston. CONSCIOUS SEDATION: 1 mg of IV Versed and 25 mcg of fentanyl were administered. Continuous vital sign monitoring was used. Nursing staff was present during the sedation process. Overall sedation time was 20 minutes. TECHNIQUE: Informed consent was obtained from the patient. Timeout procedure was performed prior to beginning. The right back was prepped in a routine sterile fashion and locally anesthetized with 1% lidocaine. Using CT guidance a 19 gauge guide needle was directed toward the lesion of interest. The needle was positioned within the outer periphery of the lesion. Coaxial technique was utilized. A total of 3 passes were made with a 20 gauge FNA biopsy needle . Limited postbiopsy CT showed a trace right pneumothorax and a small amount of hemorrhage. Continued follow-up radiographs will be obtained. Procedure was well tolerated . CONCLUSION: 1. Technically successful CT guided biopsy of right lung lesion as above. 2. Intravenous conscious sedation used. The films were reviewed, interpreted, and dictated by Dr. Nina Johnston Transcribed by Precious Kong PA-C Dictated By: NINA JOHNSTON Transcribed By: Nina Johnston Transcribed On: 03/17/2023 9:59 AM Electronically signed by: NINA JOHNSTON 03/17/2023 Thank you for referring IRENA KRUEGER to [facility]. Legally authenticated by POPE NINA Schuster 2023-03-17 09:59:44 Procedure Note Provider, [facility] - 03/17/[address] [address] Name: IRENA KRUEGER Exam Date: 03/17/2023 : 1955 Age 68 Gender: F Physician: JAD SMITH Facility: [facility] Facility HSV: Outpatient Exam: CT BIOPSY LUNG CT LUNG BIOPSY HISTORY: Right-sided pulmonary mass. PHYSICIAN RETAIL STORE CLERK: Precious Kong ATTENDING PHYSICIAN: Dr. Johnston. CONSCIOUS SEDATION: 1 mg of IV Versed and 25 mcg of fentanyl were administered. Continuous vital sign monitoring was used. Nursing staffwas present during the sedation process. Overall sedation time was 20minutes. TECHNIQUE: Informed consent was obtained from the patient. Timeoutprocedure was performed prior to beginning. The right back was prepped in aroutine sterile fashion and locally anesthetized with 1% lidocaine. Using CTguidance a 19 gauge guide needle was directed toward the lesion of interest. Theneedle was positioned within the outer periphery of the lesion. Coaxial techniquewas utilized. A total of 3 passes were made with a 20 gauge FNA biopsy needle. Limited postbiopsy CT showed a trace right pneumothorax and a small amountof hemorrhage. Continued follow-up radiographs will be obtained. Procedurewas well tolerated . CONCLUSION: 1. Technically successful CT guided biopsy of right lung lesion asabove. 2. Intravenous conscious sedation used. The films were reviewed, interpreted, and dictated by Dr. Nina Johnston Transcribed by Precious Kong PA-C Dictated By: NINA JOHNSTON Transcribed By: Nina Johnston Transcribed On: 03/17/2023 9:59 AM Electronically signed by: NINA JOHNSTON 03/17/2023 Thank you for referring IRENA KRUEGER to [facility]. Legally authenticated by POPE NINA Schuster 2023-03-17 09:59:44 Jad Smith MD IMG CT PROCEDURES Final Result documented in this encounter Visit Diagnoses [...] documented as of this encounter Care Teams Crystal Syrup Maker Relationship Specialty Start Date End Date Latisha Epps APRN [address] [place] [address] PCP - General 01/12/21 Desire Ojeda MD [address] [facility] [address] [place] [address] Surgeon Cardiothoracic Surgery 03/24/23 Jad Smith MD 1140 [facility] [address] [place], [place] [id number] Referring Physician Hematology and Oncology 03/24/23 Suzanne Wheeler LPN VALUE-BASED TRANSFORMATION PROGRAM Licensed Practical Nurse 04/19/24 05/25/24 Beba Mota LPN VALUE-BASED TRANSFORMATION PROGRAM Licensed Practical Nurse 04/28/25 05/03/25 documented as of this encounter
--- OUTSIDE RECORDS SUMMARY | 2025-05-20 13:42 | XMS_ITS | Encounter Summary ---
Author Organization Healthcare Address [address] [place] [address] Care Team Providers Care Assembler Latches And Springs Name Role Phone Latisha Julio APRN Primary Care Provider [phone] Desire Ojeda MD Unavailable [phone] Jad Smith MD Unavailable [phone] Suzanne Wheeler LPN Unavailable Unavailab Beba Ritchie LPN Unavailable Unavailabl e Encounter Details Date Type Department Care Team (Late st Contact Info) Description 05/04/2024 Outside Procedure External Location [address] [place] [address] Latisha Julio APRN [address] [place] [address] 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 Tobacco Use Types [...] often do you attend chur ch or hoahaoism services? More than 4 times per year [...] Recorded Patient Health Questionnaire-2 Score 0 04/29/2024 [facility] - Occupational Stress Questionnaire [...] drink first t chaparro in the morning (EYE-POLICY CHANGE CLERK) to steady your nerves or to get [...] file Travel History Travel Start Travel End [place] 04/26/2025 05/03/2025 documented as of this encounter Plan of Treatment Upcoming Encounters Date Type Department Care Team (Late st Contact Info) Description 05/24/2025 11:00 AM EDT Office Visit [facility] [address] [place] [address] Latisha Julio APRN [address] [place] [address] 06/29/2025 7:40 AM EDT Appointment [facility] [address] [place] [address] 06/29/2025 10:15 AM EDT Office Visit [facility] [address] [place] [address] Ken Horton MD [address] [place] [address] 07/05/2025 9:45 AM EST Office Visit [facility] 800 [facility], 2nd [place] [address] Desire Ojeda MD [address] [place] [address] documented as of this encounter Procedures Procedure Name Priority Date/Time Associated Diagnosis Comments MAMMOGRAPHY BREAST SCREENING TOMOSYNTHESIS BILATERAL 05/04/2024 8:57 AM EDT documented in this encounter Results * Mammography Breast Screening Tomosynthesis Bilateral (05/04/2024 8:57 AM EDT) Anatomical Region Laterality Modality Breast Bilateral Mammography 05/04/2024 8:57 AM EDT Narrative 05/04/2024 10:06 AM EDT [address] [address] Name: ROBERTO KRUEGER Exam Date: 05/04/2024 : 1955 Age 69 years Gender: F Physician: LATISHA JULIO Facility: [facility] Facility HSV: Outpatient Exam: JOSE SCRN [...] Thank you for referring ROBERTO KRUEGER to [facility]. Legally authenticated by ANGELITA ZAMORANO 2024-05-04 09:45:26 Procedure Note Provider, [facility] [place] - 05/04/2024 [id number] [place] [address] Name: ROBERTO KRUEGER Exam Date: 05/04/2024 : 1955 Age 69 years Gender: F Physician: LATISHA JULIO Facility: [facility] Facility HSV: Outpatient Exam: JOSE SCRN [...] the patient has breast surgery or biopsy, FDA/MQSA Regulatory Guidelines mandate that this facility receive pathologicresults for follow-up correlation. Electronically signed by:Arnulfo Fiore MD05/04/2024 10:03 AM EDT Dictated By: Arnulfo Fiore Transcribed By: Transcribed On: 05/04/2024 9:45 AM Electronically signed by: Arnulfo Fiore 05/04/2024 Thank you for referring ROBERTO KRUEGER to [facility]. Legally authenticated by ANGELITA ZAMORANO 2024-05-04 09:45:26 us Latisha Julio CONVENTIONAL MACHINIST IMG BI PROCEDURES Final Res ult documented [...] documented as of this encounter Care Teams Assembler Latches And Springs Relationship Specialty Start Date End Date Latisha Julio APRN [address] [place] [address] PCP - General 01/12/21 Desire Ojeda MD [address] [facility] [address] [place] [address] Surgeon Cardiothoracic Surgery 03/24/23 Jad Smith MD 1140 [facility] [address] [place], [place] [address] Referring Physician Hematology and Oncology 03/24/23 Suzanne Wheeler LPN VALUE-BASED TRANSFORMATION PROGRAM Licensed Practical Nurse 04/19/24 05/25/24 Beba Mota LPN VALUE-BASED TRANSFORMATION PROGRAM Licensed Practical Nurse 04/28/25 05/03/25 documented as of this encounter
--- OUTSIDE RECORDS SUMMARY | 2025-05-20 13:42 | XMS_ITS | Encounter Summary ---
Author Organization Healthcare Address [address] [place] [address] Care Team Providers Care Seat Coverer Name Role Phone Latisha Epps APRN Primary Care Provider Desire Ojeda MD Unavailable Jad Smith MD Unavailable [phone] Suzanne Wheeler PATIENT INFORMATION COORDINATOR Unavailable Unavailab Beba Ritchie PATIENT INFORMATION COORDINATOR Unavailable Unavailabl e Encounter Details Date Type Department Care Team (Late st Contact Info) Description 03/25/2023 Lab Requisition [facility] [address] [place] [address] Desire Ojeda MD [address] [place] [address] Polyp of colon 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 Tobacco Use Types Packs/Day Years Used Date Smoking Tobacco: Never Smokeless Tobacco: Never Alcohol Use Standard Drinks/Week Comments Yes 0 (1 standard drink = 0.6 oz pure alcohol) Alcoholic Drinks/day: Social alcohol use PHQ-2 Answer Date Recorded Patient Health Questionnaire-2 Score 0 03/26/2023 PHQ-9 Answer Date Recorded Patient Health Questionnaire-9 Score 10 08/16/2022 PHQ-2A Answer Date Recorded Patient Health Questionnaire-2 Score 0 03/26/2023 Comments Unknown Sex and Gender Information Value Date Recorded Sex Assigned at Female 08/08/2022 2:01 PM EST Legal Sex Female 7:17 PM EDT Gender Identity Female 08/08/2022 2:01 PM EST Sexual Orientation Not on file Travel History Travel Start Travel End [place] 04/26/2025 05/03/2025 documented as of this encounter Functional Status * Over the past 2 weeks, how often have you been bothered by any of the following problems? Question Answer Date of Assessment Author Little interest or pleasure in doing things Not at all 03/26/2023 1:55 PM EDT Milady Salinas Feeling down, depressed, or hopeless Not at all 03/26/2023 1:55 PM EDT Milady Salinas Patient Health Questionnaire -2 Score 0 03/26/2023 1:55 PM EDT Milady Salinas documented as of this encounter Plan of Treatment Upcoming Encounters Date Type Department Care Team (Late st Contact Info) Description 05/24/2025 11:00 AM EDT Office Visit [facility] [address] [place] [address] Latisha Epps APRN [address] [place] [address] 06/29/2025 7:40 AM EDT Appointment [facility] [address] [place] [address] 06/29/2025 10:15 AM EDT Office Visit [facility] [address] [place] [address] Ken Horton MD [address] [place] [address] 07/05/2025 9:45 AM EST Office Visit [facility] 800 [facility], 2nd [place] [address] Desire Ojeda MD [address] [place] [address] documented as of this encounter Procedures Procedure Name Priority Date/Time Associated Diagnosis Comments SURGICAL PATHOLOGY CONSULT Routine 03/25/2023 1:08 PM EDT Polyp of colon documented in this encounter Results * Surgical Pathology Consult (03/25/2023 1:08 PM EDT) Case Report Sugical Pathology Consult Case: Authorizing Provider: Desire Ojeda MD Collected: 03/25/2023 1308 Ordering Location: [facility] Lab Received: 03/25/2023 1308 Pathologist: Ethel Jeffrey MD Specimen: Colon, [id number] 03/25/2023 3:48 PM EDT [facility] Final Diagnosis LARGE INTESTINE, ASCENDING COLON, POLYP, BIOPSY ([id number]; 10/24/2022): - INFLAMMATORY POLYP WITH INCREASED EOSINOPHILS. 03/25/2023 3:48 PM EDT HEALTHCARE [facility] at 1548 EDT Clinical Information K63.5 - Polyp of colon [ICD-10-CM] 03/25/2023 3:48 PM EDT [facility] Gross Description A. [id number] Received along with a corresponding pathology report from [facility] is 1 slide labeled outside case: [id number] collected on 10/24/2022. 03/25/2023 3:48 PM EDT [facility] Note: A resident was involved in the service. I attest I examined the relevant preparations for the specimens and confirmed the diagnosis or interpretation. 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 documented in this encounter Additional Health Concerns Assessment Noted Time PHQ-9 Depression Total Score: 10 12/16/2 022 11:18 AM EST A fall risk assessment has been complete d for the patient 03/06/2023 3:39 PM EDT A Body Mass Index follow-up plan has been documented for the patient 03/06/2023 4:19 PM EDT documented as of this encounter Care Teams Seat Coverer Relationship Specialty Start Date End Date Latisha Epps APRN [address] [place] [address] PCP - General 01/12/21 Desire Ojeda MD [address] [place] [address] Surgeon Cardiothoracic Surgery 03/24/23 Jad Smith MD 1140 [facility] [address] [place] [address] Referring Physician Hematology and Oncology 03/24/23 Suzanne Wheeler LPN VALUE-BASED TRANSFORMATION PROGRAM Licensed Practical Nurse 04/19/24 05/25/24 Beba Mota LPN VALUE-BASED TRANSFORMATION PROGRAM Licensed Practical Nurse 04/28/25 05/03/25 documented as of this encounter
--- OUTSIDE RECORDS SUMMARY | 2025-05-20 13:42 | XMS_ITS | Encounter Summary ---
Author Organization Healthcare Address [address] [place] [address] Care Team Providers Care Patient Services Technician Name Role Phone Dawson Julio APRN Primary Care Provider [phone] Desire Ojeda MD Unavailable Jad Smith MD Unavailable [phone] Suzanne Wheeler LPN Unavailable Unavailab Beba Ritchie PROOFER APPRENTICE Unavailable Unavailabl e Encounter Details Date Type Department Care Team (Late st Contact Info) Description 04/18/2021 Outside Procedure External Location [address] [place] [address] Dawson Julio APRN [address] [place] [address] 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 Tobacco Use Types Packs/Day Years Used Date Smoking Tobacco: Never Smokeless Tobacco: Never Alcohol Use Standard Drinks/Week Comments Yes 0 (1 standard drink = 0.6 oz pure alcohol) Alcoholic Drinks/day: Social alcohol use PHQ-2 Answer Date Recorded Patient Health Questionnaire-2 Score 2 04/09/2021 Comments Unknown Sex and Gender Information Value Date Recorded Sex Assigned at Female 08/08/2022 2:01 PM EST Legal Sex Female 7:17 PM EDT Gender Identity Female 08/08/2022 2:01 PM EST Sexual Orientation Not on file Travel History Travel Start Travel End [place] 04/26/2025 05/03/2025 COVID-19 Exposure Response Date Recorded In the last month, have you been in contact with someone who was confirmed or suspected to have Coronavirus / COVID-19? No / Unsure 04/09/2021 10:27 AM EDT documented as of this encounter Plan of Treatment Upcoming Encounters Date Type Department Care Team (Late st Contact Info) Description 05/24/2025 11:00 AM EDT Office Visit [facility] [address] [place] [address] Dawson Julio, CHILDCARE CENTER ADMINISTRATOR [address] [place] [address] 06/29/2025 7:40 AM EDT Appointment [facility] [address] [place] [address] 06/29/2025 10:15 AM EDT Office Visit [facility] [address] [place] [address] Ken Horton MD [address] [place] [address] 07/05/2025 9:45 AM EST Office Visit [facility] 800 [facility], 2nd [place] [address] Desire Ojeda MD [address] [facility] [address] [place] [address] documented as of this encounter Procedures Procedure Name Priority Date/Time Associated Diagnosis Comments MAMMOGRAPHY BREAST SCREENING TOMOSYNTHESIS BILATERAL 04/18/2021 2:18 PM EDT documented in this encounter Results * Mammography Breast Screening Tomosynthesis Bilateral (04/18/2021 2:18 PM EDT) Anatomical Region Laterality Modality Breast Bilateral Mammography 04/18/2021 2:18 PM EDT Narrative 05/10/2021 10:17 AM EDT [facility] [address] [place] [address] Name: ROBERTO KRUEGER Exam Date: 04/18/2021 : 1955 Age 66 Gender: F Physician: DAWSON JULIO Facility: [facility] Facility HSV: Outpatient Exam: JOSE SCRN MAMMO W/CAD BILAT MAMMOGRAM SCREENING BILATERAL WITH TOMOSYNTHESIS HISTORY: Routine screening exam COMPARISON: No prior imaging is available at this time for comparison. If prior studies is become available, an addendum can be issued. FINDINGS: Standard views were obtained. There are scattered fibroglandular densities. Benign-appearing calcifications are present. No mass, suspicious calcifications or architectural distortion is present. IMPRESSION: No mammographic evidence of malignancy. BI-RADS 2: Benign RECOMMENDATION: Annual mammography CAD was utilized during interpretation. The patient will be sent a letter from the mammography department with their mammography findings. Dictated By: Nina Reno Transcribed By: Nina Reno Transcribed On: 05/10/2021 10:04 AM Electronically signed by: Nina Reno 05/10/2021 Thank you for referring ROBERTO KRUEGER to [facility]. Legally authenticated by POPE NINA Schuster 2021-05-10 10:04:47 Procedure Note Provider, Generic [place] - 05/10/2021 [id number] Name: ROBERTO KRUEGER Exam Date: 04/18/2021 : 1955 Age 66 Gender: F Physician: DAWSON JULIO Facility: [facility] Facility HSV: Outpatient Exam: JOSE SCRN MAMMO W/CAD BILAT MAMMOGRAM SCREENING BILATERAL WITH TOMOSYNTHESIS HISTORY: Routine screening exam COMPARISON: No prior imaging is available at this time for comparison.If prior studies is become available, an addendum can be issued. FINDINGS: Standard views were obtained. There are scatteredfibroglandular densities. Benign-appearing calcifications are present. No mass,suspicious calcifications or architectural distortion is present. IMPRESSION: No mammographic evidence of malignancy. BI-RADS 2: Benign RECOMMENDATION: Annual mammography CAD was utilized during interpretation. The patient will be sent a letter from the mammography department withtheir mammography findings. Dictated By: Nina Reno Transcribed By: Nina Reno Transcribed On: 05/10/2021 10:04 AM Electronically signed by: Nina Reno 05/10/2021 Thank you for referring ROBERTO KRUEGER to [facility]. Legally authenticated by POPE NINA Schuster 2021-05-10 10:04:47 us Dawson Julio CHILDCARE CENTER ADMINISTRATOR IMG BI PROCEDURES Final Res ult documented in this encounter Visit Diagnoses Not on filedocumented in this encounter Additional Health Concerns Assessment Noted Time PHQ-9 Depression Total Score: 5 04/09/20 21 10:37 AM EDT A fall risk assessment has been complete d for the patient 04/09/2021 10:39 AM EDT documented as of this encounter Care Teams Patient Services Technician Relationship Specialty Start Date End Date Dawson Julio APRN [address] [place] [address] PCP - General 01/12/21 Desire Ojeda MD [address] [facility] [address] [place] [address] Surgeon Cardiothoracic Surgery 03/24/23 Jad Smith MD [address] [facility] [address] [place] [address] Referring Physician Hematology and Oncology 03/24/23 Suzanne Wheeler LPN VALUE-BASED TRANSFORMATION PROGRAM Licensed Practical Nurse 04/19/24 05/25/24 Beba Mota LPN VALUE-BASED TRANSFORMATION PROGRAM Licensed Practical Nurse 04/28/25 05/03/25 documented as of this encounter
--- OUTSIDE RECORDS SUMMARY | 2025-05-20 13:42 | XMS_ITS ---
Author Organization [facility] Address [address] [place], [place] [address] Care Team Providers Care Senior Erp Consultant Name Role Phone Latisha Epps APRN Primary Care Provider Desire Ojeda MD Unavailable [phone] Jad Smith MD Unavailable [phone] Annual Wellness Status:Closed (Closed) Start date:04/28/2025 Enrollment reason:Identified using claims or encounter data End date:05/03/2025 Close reason:Unable to reach patient Continued Care and Services Coordination
--- OUTSIDE RECORDS SUMMARY | 2025-05-20 13:42 | XMS_ITS | Encounter Summary ---
Author Organization Healthcare Address [address] [place] [address] Care Team Providers Care Sheriffs Officer Name Role Phone Latisha Epps APRN Primary Care Provider [phone] Desire Ojeda MD Unavailable [phone] Jad Smith MD Unavailable [phone] Suzanne Wheeler CONCRETE BLOCK PLANT SUPERVISOR Unavailable Unavailab Beba Ritchie CONCRETE BLOCK PLANT SUPERVISOR Unavailable Unavailabl e Encounter Details Date Type Department Care Team (Late st Contact Info) Description 03/04/2023 Orders Only External Location [address] [place] [address] Provider, External 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 Tobacco Use Types Packs/Day Years [...] file Travel History Travel Start Travel End [place] 04/26/2025 05/03/2025 documented as of this encounter Functional Status * Over the past 2 weeks, how often have you been bothered by any of the following problems? Question Answer Date of Assessment Author Little interest or pleasure in doing things Not at all 03/06/2023 3:40 PM EDT Lisbeth Cowan Feeling down, depressed, or hopeless Not at all 03/06/2023 3:40 PM EDT Lisbeth Cowan Patient Health Questionnaire -2 Score 0 03/06/2023 3:40 PM EDT Lisbeth Cowan documented as of this encounter Plan of Treatment Upcoming Encounters Date Type Department Care Team (Late st Contact Info) Description 05/24/2025 11:00 AM EDT Office Visit [facility] [address] [place] [address] Latisha Epps, HEALTHCARE ADMINISTRATIVE ASSISTANT [address] [place] [address] 06/29/2025 7:40 AM EDT Appointment [facility] [address] [place] [address] 06/29/2025 10:15 AM EDT Office Visit [facility] [address] [place] [phone] Ken Horton MD [address] [facility] [address] [place] [address] 07/05/2025 9:45 AM EST Office Visit [facility] [address] [facility], 2nd [place] [address] Desire Ojeda MD [address] [facility] [address] [place] [address] documented as of this encounter Procedures Procedure Name Priority Date/Time Associated Diagnosis Comments CT ABDOMEN PELVIS W IV CONTRAST 03/04/2023 6:46 PM EDT documented in this encounter Results * CT Abdomen Pelvis w IV Contrast (03/04/2023 6:46 PM EDT) Anatomical Region Laterality Modality Abdomen, Pelvis Computed Tomogra phy 03/04/2023 6:46 PM EDT External Provider IMG CT PROCEDURES Final Result documented in this encounter Visit Diagnoses Not on filedocumented in this encounter Additional Health Concerns Assessment Noted Time PHQ-9 Depression Total Score: 10 022 11:18 AM EST A fall risk assessment has been complete d for the patient 08/16/2022 11:20 AM EST documented as of this encounter Care Teams Sheriffs Officer Relationship Specialty Start Date End Date Latisha Epps APRN [address] [place] [address] PCP - General 01/12/21 Desire Ojeda MD [address] [place] [address] Surgeon Cardiothoracic Surgery 03/24/23 Jad Smith MD [address] [facility] [address] [place], [place] [phone] Referring Physician Hematology and Oncology 03/24/23 Suzanne Wheeler LPN VALUE-BASED TRANSFORMATION PROGRAM Licensed Practical Nurse 04/19/24 05/25/24 Beba Mota LPN VALUE-BASED TRANSFORMATION PROGRAM Licensed Practical Nurse 04/28/25 05/03/25 documented as of this encounter
--- OUTSIDE RECORDS SUMMARY | 2025-05-20 13:42 | XMS_ITS | Encounter Summary ---
Author Organization Healthcare Address [address] [place] [address] Care Team Providers Care Enterprise Application Architect Name Role Phone Dawson Julio APRN Primary Care Provider [phone] Desire Ojeda MD Unavailable Jad Smith MD Unavailable [phone] Suzanne Wheeler LPN Unavailable Unavailab Beba Ritchie ELECTRIC MOTORMAN Unavailable Unavailabl e Encounter Details Date Type Department Care Team (Late st Contact Info) Description 04/18/2021 Outside Procedure External Location [address] [place] [address] Dawson Julio APRN [address] [place] [address] 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 Tobacco Use Types [...] Travel Start Travel End [place] 04/26/2025 05/03/2025 COVID-19 Exposure Response Date Recorded In the last month, have you been in contact with someone who was confirmed or suspected to have Coronavirus / COVID-19? No / Unsure 04/09/2021 10:27 AM EDT documented as of this encounter Plan of Treatment Upcoming Encounters Date Type Department Care Team (Late st Contact Info) Description 05/24/2025 11:00 AM EDT Office Visit [facility] [address] [place] [address] Dawson Julio, NETWORK CONSULTANT [address] [place] [address] 06/29/2025 7:40 AM EDT Appointment [facility] [address] [place] [address] 06/29/2025 10:15 AM EDT Office Visit [facility] [address] [place] [address] Ken Horton MD [address] [facility] [address] [place] [address] 07/05/2025 9:45 AM EST Office Visit [facility] [address] [facility], 2nd [place] [address] Desire Ojeda MD [address] [place] [address] documented as of this encounter Procedures Procedure Name Priority Date/Time Associated Diagnosis Comments DEXA BONE DENSITY 04/18/2021 2:1 8 PM EDT documented in this encounter Results * Dexa Bone Density (04/18/2021 2:18 PM EDT) Anatomical Region Laterality Modality L-spine Radiographic Marley ging 04/18/2021 2:18 PM EDT Narrative 04/18/2021 7:10 PM EDT [facility] [address] [place] [address] Name: ROBERTO KRUEGER Exam Date: 04/18/2021 : 1955 Age 66 Gender: F Physician: DAWSON JULIO Facility: [facility] Facility HSV: Outpatient Exam: DEXA BONE DENSITY [...] Nina Reno 04/18/2021 Thank you for referring ROBERTO KRUEGER to [facility]. Legally authenticated by POPE NINA Schuster 2021-04-18 19:01:14 Procedure Note Provider, [facility] 04/18/2021 [place] [address] Name: ROBERTO KRUEGER Exam Date: 04/18/2021 : 1955 Age 66 Gender: F Physician: DAWSON JULIO Facility: [facility] Facility HSV: Outpatient Exam: DEXA BONE DENSITY [...] Nina Reno 04/18/2021 Thank you for referring ROBERTO KRUEGER to [facility]. Legally authenticated by POPE NINA Schuster 2021-04-18 19:01:14 Dawson Julio APRN IMG DXA PROCEDURES Final Re sult documented in this encounter Visit Diagnoses Not on filedocumented in this encounter Additional Health Concerns Assessment Noted Time PHQ-9 Depression Total Score: 5 04/09/20 10:37 AM EDT A fall risk assessment has been complete d for the patient 04/09/2021 10:39 AM EDT documented as of this encounter Care Teams Enterprise Application Architect Relationship Specialty Start Date End Date Dawson Julio APRN [address] [facility] [place] [address] PCP - General 01/12/21 Desire Ojeda MD [address] [place] [address] Surgeon Cardiothoracic Surgery 03/24/23 Jad Smith MD [address] [facility] [address] [place], [place] [phone] Referring Physician Hematology and Oncology 03/24/23 Suzanne Wheeler LPN VALUE-BASED TRANSFORMATION PROGRAM Licensed Practical Nurse 04/19/24 05/25/24 Beba Mota LPN VALUE-BASED TRANSFORMATION PROGRAM Licensed Practical Nurse 04/28/25 05/03/25 documented as of this encounter
--- OUTSIDE RECORDS SUMMARY | 2025-05-20 13:42 | XMS_ITS | Encounter Summary ---
Author Organization Healthcare Address [address] [place] [address] Care Team Providers Care Senior Linux Systems Engineer Name Role Phone Latisha Julio APRN Primary Care Provider [phone] Desire Ojeda MD Unavailable [phone] Jad Smith MD Unavailable [phone] Suzanne Wheeler LPN Unavailable Unavailab Beba Ritchie LPN Unavailable Unavailabl e Encounter Details Date Type Department Care Team (Late st Contact Info) Description 05/19/2024 Outside Procedure External Location [address] [place] [address] Latisha Julio APRN [address] [place] [address] 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 Tobacco Use Types [...] often do you attend chur ch or christianity services? More than 4 times per year 04/23/2024 Do you belong to any clubs o r organizations such as sikh groups, unions, fraternal or athletic groups, or [...] Recorded Patient Health Questionnaire-2 Score 0 04/29/2024 [facility] - Occupational Stress Questionnaire [...] place to sleep or slept in a detention (including now)? 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-SURGICAL MANAGER) to steady your nerves or to [...] Description 05/24/2025 11:00 AM EDT Office Visit [facility] [address] [place] [address] Latisha Julio APRN [address] [place] [address] 06/29/2025 7:40 AM EDT Appointment [facility] [address] [place] [address] 06/29/2025 10:15 AM EDT Office Visit [facility] [address] [place] [address] Ken Horton MD [address] [place] [address] 07/05/2025 9:45 AM EST Office Visit [facility] [address] [facility], 2nd [place] [address] Desire Ojeda MD [address] [place] [address] documented as of this encounter Procedures Procedure Name Priority Date/Time Associated Diagnosis Comments MAMMOGRAPHY BREAST POST BIOPSY CLIP RIGHT 05/19/2024 3:11 PM EDT documented in this encounter Results * Mammography Breast Post Biopsy Clip Right (05/19/2024 3:11 PM EDT) Anatomical Region Laterality Modality Breast Right Mammography 05/19/2024 3:11 PM EDT Narrative 05/19/2024 5:21 PM EDT [address] [address] Name: ROBERTO KRUEGER Exam Date: 05/19/2024 : 1955 Age 69 years Gender: F Physician: LATISHA JULIO Facility: [facility] Facility HSV: Outpatient Exam: JOSE DIAG MAMMO W/CAD RT EXAMINATION: MAMMO BREAST DIAGNOSTIC TOMOSYNTHESIS RIGHT, [...] requested Legally authenticated by MATTY CRUMP 2024-05-19 15:42:39 BI-RADS: 3-probably benign [id number]-[id number]-[id number] follow-up Recommendation: Six-month follow-up right diagnostic mammogram [...] Ivonne Barbour Transcribed By: Transcribed On: 05/19/2024 3:42 PM Electronically signed by: Ivonne Barbour 05/19/2024 Thank you for referring ROBERTO KRUEGER to [facility]. Legally authenticated by MATTY CRUMP 2024-05-19 15:42:39 Procedure Note Provider, [facility] [place] - 05/19/2024 [place] [address] Name: ROBERTO KRUEGER Exam Date: 05/19/2024 : 1955 Age 69 years Gender: F Physician: LATISHA JULIO Facility: [facility] Facility HSV: Outpatient Exam: JOSE DIAG MAMMO W/CAD RT EXAMINATION: MAMMO BREAST DIAGNOSTIC TOMOSYNTHESIS RIGHT, [...] is made with prior examinations dating back [id number]. Findings: Right digital mammogram: Breast Composition: The [...] requested Legally authenticated by MATTY CRUMP 2024-05-19 15:42:39 BI-RADS: 3-probably benign srrbvey-iowbq-cgto follow-up Recommendation: Six-month follow-up right diagnostic mammogram and targeted 4:00 rightbreast sonogram, 8 to 9 cm from the nipple is requested to reevaluate the 2described hypoechoic nodules in this area Attention Physician: A letter has been sent to your patient regardingthe results of this exam Electronically signed by:Ivonne Barbour MD05/19/2024 05:17 PM EDT RP Dictated By: Ivonne Barbour Transcribed By: Transcribed On: 05/19/2024 3:42 PM Electronically signed by: Ivonne Barbour 05/19/2024 Thank you for referring ROBERTO KRUEGER to [facility]. Legally authenticated by MATTY CRUMP 2024-05-19 15:42:39 us Latisha Julio APRN IMG BI PROCEDURES [...] documented as of this encounter Care Teams Senior Linux Systems Engineer Relationship Specialty Start Date End Date Latisha Julio APRN [address] [place] [address] PCP - General 01/12/21 Desire Ojeda MD [address] [place] [address] Surgeon Cardiothoracic Surgery 03/24/23 Jad Smith MD [address] [facility] [address] [place] [address] Referring Physician Hematology and Oncology 03/24/23 Suzanne Wheeler LPN VALUE-BASED TRANSFORMATION PROGRAM Licensed Practical Nurse 04/19/24 05/25/24 Beba Mota LPN VALUE-BASED TRANSFORMATION PROGRAM Licensed Practical Nurse 04/28/25 05/03/25 documented as of this encounter
--- OUTSIDE RECORDS SUMMARY | 2025-05-20 13:42 | XMS_ITS | Encounter Summary ---
Author Organization [facility] Address [address] [place] [address] Care Team Providers Care Lusterer Name Role Phone Latisha Epps APRN Primary Care Provider [phone] Desire Ojead MD Unavailable [phone] Jad Smith MD Unavailable [phone] Reason for Visit * Reason Onset Date Comments Med Refill 04/04/2025 Encounter Details Date Type Department Care Team (Late st Contact Info) Description 04/04/2025 Refill [facility] [address] [place] [address] Latisha Epps APRN [address] [place] [address] Essential hypertension 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 Tobacco Use Types Packs/Day Years [...] How often do you attend chur or muslim services? More than 4 times per year 04/23/2024 Do you belong to any clubs o r organizations such as congregation groups, unions, fraternal or athletic groups, or [...] Recorded Patient Health Questionnaire-2 Score 0 04/29/2024 [facility] - Occupational Stress Questionnaire Answer Date [...] place to sleep or slept in a [place] health care facility (including now)? 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-ASSOCIATE SOFTWARE APPLICATION ENGINEER) to steady your nerves or to get rid of a hangover? 0 07/03/2023 CAGE Questionnaire Score 0 023 Utilities Answer Date Recorded In the past 12 months has th e [employer], gas, oil, or water company threatened to [...] encounter Miscellaneous Notes * Telephone Encounter - Steff Mcduffie [facility] - 04/06/2025 12:04 PM EDT 1 medication(s) has been denied per protocol due to: Refill requested too soon Rx was sent in on 02-18-25 for 90 days. Receipt confirmed by pharmacy (02/18/2025 8:22 AM EDT) documented in this encounter Plan of Treatment Upcoming Encounters Date Type Department Care Team (Late st Contact Info) Description 05/24/2025 11:00 AM EDT Office Visit [facility] [address] [place] [address] Latisha Epps, AEROPLANE PILOT [address] [place] [address] 06/29/2025 7:40 AM EDT Appointment [facility] [address] [place] [address] 06/29/2025 10:15 AM EDT Office Visit [facility] [address] [place] [address] Ken Horton MD [address] [facility] [address] [place] [address] 07/05/2025 9:45 AM EST Office Visit [facility] [address] [facility], [address] [place] [address] Desire Ojeda MD [address] [facility] [address] [place] [address] documented as of this encounter Visit Diagnoses Diagnosis Essential hypertension Unspecified essential hypertension documented in this encounter Additional Health Concerns Assessment Noted Time PHQ-9 Depression Total Score: 10 1216/2 022 11:18 AM EST A fall risk assessment has been complete d for the patient 01/18/2025 9:47 AM EDT A Body Mass Index follow-up plan has been documented for the patient 01/18/2025 12:49 PM EDT documented as of this encounter Care Teams Lusterer Relationship Specialty Start Date End Date Latisha Epps APRN [address] [place] [address] PCP - General 01/12/21 Desire Ojeda MD [address] [facility] [address] [place] [address] Surgeon Cardiothoracic Surgery 03/24/23 Jad Smith MD [address]0 [facility] [address] [place] [address] Referring Physician Hematology and Oncology 03/24/23 documented as of this encounter
--- OUTSIDE RECORDS SUMMARY | 2025-05-20 13:42 | XMS_ITS | Encounter Summary ---
Author Organization Healthcare Address [address] [place] [address] Care Team Providers Care Athletic Trainer Name Role Phone Mich Latisha Glaser APRN Primary Care Provider Desire Ojeda MD Unavailable [phone] Jad Smith MD Unavailable [phone] Suzanne Wheeler PROFILER HAND Unavailable Unavailab Beba Ritchie PROFILER HAND Unavailable Unavailabl e Encounter Details Date Type Department Care Team (Late st Contact Info) Description 03/25/2023 Lab Requisition [facility] [address] [place] [address] Desire Ojeda MD [address] [place] [address] Solitary pulmonary nodule 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 Tobacco Use Types Packs/Day Years [...] file Travel History Travel Start Travel End [place] 04/26/2025 05/03/2025 documented as of this encounter [...] Description 05/24/2025 11:00 AM EDT Office Visit [facility] [address] [place] [address] Latisha Epps APRN [address] [place] [address] 06/29/2025 7:40 AM EDT Appointment [facility] [address] [place] [address] 06/29/2025 10:15 AM EDT Office Visit [facility] [address] [place] [address] Ken Horton MD [address] [place] [address] 07/05/2025 9:45 AM EST Office Visit [facility] 800 [facility], 2nd [place] [address] Desire Ojeda MD [address] [place] [address] documented as of this encounter Procedures Procedure Name Priority Date/Time Associated Diagnosis Comments CYTOLOGY CONSULT Routine 03/25/2023 1:39 PM EDT Solitary pulmonary nodule documented in this encounter Results * Cytology Consult (03/25/2023 1:39 PM EDT) Case Report Cytology Case: [id number] Authorizing Provider: Desire Ojeda MD Collected: 03/25/2023 9194 Ordering Location: [facility] Lab Received: 03/25/2023 0932 Pathologist: Marcia James MD Specimen: Lung, [id number] 03/26/2023 9:18 AM EDT [facility] Final Diagnosis LUNG, RIGHT LOWER LOBE, FNA (OUTSIDE , COLLECTED 03/17/23): -POSITIVE FOR NEUROENDOCRINE TUMOR. SEE COMMENT. 03/26/2023 9:18 AM EDT [facility] at 0918 EDT Comment Within this sample, the tumor is well differentiated. Immunohistochemical stains are provided for review, and the tumor cells are decorated by synaptophysin, CD 56 and TTF-1. 03/26/2023 9:18 AM EDT [facility] Clinical Information R91.1 - Solitary pulmonary nodule [ICD-10-CM] 03/26/2023 9:18 AM EDT [facility] Gross Description A. [id number] Received along with a corresponding pathology report from [facility]ology [facility] Cytology Laboratory are 9 slide(s) labeled outside case: [id number] collected on 03/17/2023. 03/26/2023 9:18 AM EDT [facility] Fine Needle Aspirate Lung structure / Unknown 03/25/2023 1:39 PM EDT 03/25/2023 1:39 PM EDT us Desire Ojeda MD LAB PATHOLOGY ORDERABLES Fin al Result [facility] [address] [place] [address] documented in this encounter Visit Diagnoses Diagnosis Solitary pulmonary nodule documented in this encounter Additional Health Concerns Assessment Noted Time PHQ-9 Depression Total Score: 10 1216/2 022 11:18 AM EST A fall risk assessment has been complete d for the patient 03/06/2023 3:39 PM EDT A Body Mass Index follow-up plan has been documented for the patient 03/06/2023 4:19 PM EDT documented as of this encounter Care Teams Athletic Trainer Relationship Specialty Start Date End Date Latisha Epps APRN [address] [place] [address] PCP - General 01/12/21 Desire Ojeda MD [address] [facility] [address] [place] [address] Surgeon Cardiothoracic Surgery 03/24/23 Jad Smith MD 1140 [facility] [address] [place] [address] Referring Physician Hematology and Oncology 03/24/23 Suzanne Wheeler LPN VALUE-BASED TRANSFORMATION PROGRAM Licensed Practical Nurse 04/19/24 05/25/24 Beba Mota LPN VALUE-BASED TRANSFORMATION PROGRAM Licensed Practical Nurse 04/28/25 05/03/25 documented as of this encounter
== END 2025-05-20 23:59 | disposition home or self-care (01) ==
LOC: RAD 13:38
PROVIDERS: PCP Nurse Practitioner Family; Visit Provider Nurse Practitioner Family
DX: R42 Dizziness and giddiness (principal); R29.6 Repeated falls
CPT/HCPCS: 70551